=== PATIENT | male | born 1945 | race Caucasian/White ===

== ENCOUNTER 2017-02-09 20:36 | Inpatient (IN) | payer BC, MEDICARE ==
--- NOTE | ~2017-02-09 | CN ---
Consultation Report [facility] [address] [facility] [place]. [address] NAME: MICHAEL ROJAS : 47 STATUS : ADM IN [facility]#: [id number] AGE: 71 ADM/REG DATE : 02/09/17 MR#: [id number] REPORT SERV DATE: 02/11/17 DICTATED BY: RIOS SPRINGER DATE: 02/11/17 REPORT STATUS : Draft TRANSCRIBED BY: MODL DATE: 02/11/17 DATE OF CONSULTATION: HISTORY OF PRESENT ILLNESS: Mr. Michael Rojas is a 71-year-old male, who is referred for hypotension and volume overload. STRAP BUCKLER: Dr. Hobbs from [facility]. HISTORY OF PRESENT ILLNESS: Mr. Rojas has a history of end-stage renal disease, on hemodialysis beginning in 08/2016. He has known coronary artery disease with ischemic cardiomyopathy and permanent atrial fibrillation, on Coumadin. He was admitted on 02/09/2017 with progressive weakness, poor appetite, and difficulty breathing. While in the hospital, he suffered a PEA arrest and was resuscitated. He currently is in intensive care unit and undergoing cardiac support. PAST MEDICAL HISTORY: 1. End-stage renal disease. 2. Ischemic cardiomyopathy with ejection fraction of 35% to 40% in the past. 3. Coronary artery disease with no stents or coronary artery bypass grafting noted. 4. Hypertension, long-standing. 5. Myeloproliferative syndrome. SOCIAL HISTORY: He is . He does continue to smoke daily. He does not drink. FAMILY HISTORY: Negative for early heart disease. PHYSICAL EXAMINATION: GENERAL: He currently is intubated and sedated. VITAL SIGNS: Blood pressure of 80/63. LUNGS: Bilateral breath sounds are heard. HEART: Precordium is quiet with distant heart sounds. Rhythm appears to be regular. ABDOMEN: Soft. EXTREMITIES: There is 1+ lower extremity edema. Pulses are present. LABORATORY EVALUATION: Bilirubin is markedly up. INR was markedly elevated at 7.1, on admission, it is now 3.5 post potassium. BNP was markedly elevated. Troponin was borderline. ASSESSMENT AND PLAN: At this time, we will continue to support as needed. Prognosis is poor. No acute intervention is suggested. No evidence of acute myocardial infarction is noted. GG/MODL Consultation Report [place] [address] [facility] [place]. [address] NAME: MICHAEL ROJAS : 47 STATUS : ADM IN PAT#: [id number] AGE: 71 ADM/REG DATE : 02/09/17 MR#: [id number] REPORT SERV DATE: 02/11/17 DICTATED BY: RIOS SPRINGER DATE: 02/11/17 REPORT STATUS : Draft TRANSCRIBED BY: ANTONIA DATE: 02/11/17 Rios Springer M.D. / [id number] CC: MD Dean Richards M.D.
--- NOTE | ~2017-02-09 | OP ---
Record Of [facility] [address] [place]. [address] NAME: NAVJOT GREENE : 47 STATUS : ADM IN PAT#: [id number] AGE: 71 ADM/REG DATE : 02/09/17 MR#: [id number] REPORT SERV DATE: 02/11/17 DICTATED BY: LACY WILSON DATE: 02/11/17 REPORT STATUS : Draft TRANSCRIBED BY: MODL DATE: 02/11/17 DATE OF PROCEDURE: 02/11/2017 PROCEDURE: Intubation. REASON: Code Blue. Patient unresponsive and not maintaining an airway. The patient did not require any sedation for intubation and a #4 blade was used on the GlideScope. Vocal cords were well visualized and an #8 endotracheal tube was inserted on the first attempt with good color change from blue to yellow. Bilateral breath sounds were heard and chest x-ray confirmed good placement of the endotracheal tube. /LORRAINEL Lacy Wilson M.D. / [id number] CC: MD Dean Richards M.D.
--- NOTE | ~2017-02-09 | DS ---
Discharge Summary [facility] [address] [facility] [place]. [address] NAME: NAVJOT GREENE : 47 STATUS : DIS IN PAT#: [id number] AGE: 71 ADM/REG DATE : 02/09/17 MR#: [id number] REPORT SERV DATE: 02/24/17 DICTATED BY: LACY WILSON DATE: 02/24/17 REPORT STATUS : Draft TRANSCRIBED BY: MODL DATE: 02/24/17 ADMISSION DATE: 02/09/2017 DISCHARGE DATE: 02/24/2017 DATE OF : 02/24/2017 at 0050 hours. The patient has had several interim discharge summaries, the last one being on 02/19/2017. This summary will cover the 02/19/2017 until 02/24/2017. For details, please see previous discharge summary. Briefly, this was a 71-year-old gentleman with chronic kidney disease, initially admitted to the Hospitalist Service, was then transferred to the critical care unit after he developed respiratory failure secondary to volume overload and end-stage kidney disease and not been on dialysis for quite some time. On 02/11/2017, the patient went into a PEA arrest, was coded, intubated, a PICC line and A-line were placed, Vas-Cath was placed. The patient went into cardiogenic shock and had a major decrease in his ejection fraction. He was on multiple pressors including dobutamine, Levophed, epinephrine, and vasopressin. Code status was discussed with the who was agreeable to at least see if the patient was improved to the point where he did not need dialysis since it was his wish not to continue dialysis or have aggressive treatment and tracheostomy was not an option according to the . So, the patient eventually was able to be weaned off the most of the pressors with the exception of Levophed. He was treated for an E. coli Pseudomonas pneumonia. He continued on CRRT and then was transitioned eventually to dialysis. He did not undergo hypothermia protocol because he was not stable enough to do that. However, despite all of that, the patient did improve in his mental status and was responsive. So, he did not suffer any high degree of hypoxic encephalopathy. Further discussion was undertaken with the this week and discussion was had with her on the morning of 02/23/2017 about continuing dialysis, which she chose not to as per her 's wishes. Family was called and when everyone had come by to pay their respects, the patient was liberated from the ventilator and Levophed was discontinued. The patient was made comfort measures. All lab work and dialysis was stopped, and the patient early on the morning of 02/24/2017 at 0050 hours. DICTATED BY: Jena Coates/ANTONIA Lacy Wilson M.D. / [id number] CC: MD Dean Richards M.D.
--- NOTE | ~2017-02-09 | OP ---
Record Of Operation [facility] [address] [place]. [address] NAME: NAVJOT ROJAS : 47 STATUS : ADM IN PAT#: [id number] AGE: 71 ADM/REG DATE : 02/09/17 MR#: [id number] REPORT SERV DATE: 02/11/17 DICTATED BY: MALIA FELICIANO DATE: 02/10/17 REPORT STATUS : Draft TRANSCRIBED BY: MODL DATE: 02/10/17 DATE OF PROCEDURE: 02/10/2017 PREOPERATIVE DIAGNOSIS: Renal failure requiring hemodialysis. POSTOPERATIVE DIAGNOSIS: Renal failure requiring hemodialysis. PROCEDURE PERFORMED: 1. Ultrasound-guided percutaneous access, left internal jugular vein. 2. Placement of left internal jugular vein Vas-Cath with fluoroscopic guidance. SURGEON: Malia Feliciano M.D. ANESTHESIA: Local with MAC. ESTIMATED BLOOD LOSS: 10 mL. COMPLICATIONS: None. INDICATION: Mr. Rojas is a 71-year-old male with end-stage renal disease, on hemodialysis. He apparently has no dialysis access. He needs dialysis somewhat urgently. I am asked to place a Vas-Cath. DETAILS OF PROCEDURE: After informed consent was obtained, the patient was brought to the endovascular suite and placed in supine position. After administration of IV sedation, he was prepped and draped in usual sterile fashion. A time-out was performed. I commenced the procedure with ultrasound examination of the right internal jugular vein. 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 Left internal jugular vein was widely patent and easily compressible. Permanent image of the vein documenting patency was saved and stored in the patient's chart. I anesthetized the skin at the left side of the neck. I accessed the internal jugular vein with 18-gauge entry needle, passed the J-tip guidewire into the right atrium confirmed under fluoroscopy. I then made a stab incision overlying the access site. I sequentially dilated the subcutaneous tract. I then placed a Mahurkar Vas-Cath with tip in the right atrium. Both ports aspirated dark venous blood and flushed easily with heparinized saline. Satisfactory placement was confirmed under fluoroscopy. Catheter was secured to the skin with 2-0 nylon. Sterile dressings were applied. The patient has a MediPort in place in what looks to be the right subclavian vein. To ensure that it was usable, I accessed it with a De Jesus needle. It aspirated dark venous blood and flushes easily with heparinized saline. I then left the port accessed and a sterile dressing was applied. The patient tolerated the procedure well with no complications. RYAN/ANTONIA Malia Donovan Record Of [address] [address] NAME: NAVJOT ROJAS : 47 STATUS : ADM IN [facility]#: [id number] AGE: 71 ADM/REG DATE : 02/09/17 MR#: [id number] REPORT SERV DATE: 02/11/17 DICTATED BY: MALIA FELICIANO DATE: 02/10/17 REPORT STATUS : Draft TRANSCRIBED BY: ANTONIA DATE: 02/10/17 Jena Feliciano / [id number] CC: MD Dean Richards M.D.
--- NOTE | ~2017-02-09 | CN ---
Consultation Report [facility] [address] [place]. [address] NAME: NAVJOT GREENE : 47 STATUS : ADM IN PAT#: [id number] AGE: 71 ADM/REG DATE : 02/09/17 MR#: [id number] REPORT SERV DATE: 02/12/17 DICTATED BY: DATE: REPORT STATUS : Draft TRANSCRIBED BY: MODL DATE: 02/12/17 NEUROLOGY CONSULTATION DATE OF CONSULTATION: 02/12/2017 REASON FOR CONSULT: Prognostication after cardiac arrest. HISTORY OF PRESENT ILLNESS: This is a 71-year-old male who presented to [facility] on 02/09/2017 secondary to multiple complaints, mostly was noted to have volume overloading as well as progressive weakness and decreased respiratory status. The patient was placed on BiPAP as well as CRRT, was noted to have increasing hypoxia, subsequently was transferred to the MICU for stabilization. The patient was noted to have a PEA cardiac arrest. On 02/11/2017, the patient was resuscitated with multiple rounds of epinephrine as well as atropine with the patient subsequently placed on epinephrine drip. The patient resumed cardiac rhythm, but was noted to have obtainable blood pressure, subsequently required three pressors for maintaining blood pressures. The patient was off CRRT secondary to patient's unstable vital status. The patient in addition was not offered hypothermia secondary to unstable clinical presentation. Since the cardiac arrest, the patient was noted to have myoclonus-type activities with the patient subsequently placed on Precedex as well as provided with a one-time dose of Keppra 1000 mg. No significant improvement of myoclonus was noted. The patient was still noted to have jerking type of activity with stimulation. The patient at baseline was noted to have a poor functional status with the patient noted to have decreased heart contractility with the patient's EF 25% to 30% during current hospital admission. In addition, the patient was noted to have volume overloading as well as chronic kidney disease. The patient, however, was noted to be not on dialysis prior to hospital presentation for unknown reason. The patient in addition was also noted to have a history of myelodysplastic syndrome. The patient is currently on Precedex prior to the hospitalization. No report of recent illness, fever, chill, nausea, vomiting was reported. PAST MEDICAL HISTORY: Significant for chronic kidney disease, stage 4 to 5, with the patient previously on hemodialysis, but apparently has been off one year for unknown reason. The patient was also noted to have a history of hypertension; adrenal insufficiency; hypothyroidism; gastroesophageal reflux disease; COPD; atrial fibrillation, previously on Coumadin; pulmonary hypertension; as well as congestive heart failure, current LVEF of 25- 30% by inpatient echocardiogram during current hospital admission. ALLERGIES: THE PATIENT WAS NOTED TO HAVE NO KNOWN DRUG ALLERGIES. FAMILY HISTORY: Significant for dementia as well as Desi Gehrig disease, and cancer. SOCIAL HISTORY: The patient still smokes tobacco, but denies alcohol and illicit drug usage per medical record. CURRENT HOSPITAL MEDICATIONS: Consist of Precedex as well as Levophed and Vasotec. The Consultation Report [place] [address] [place]. [address] NAME: NAVJOT GREENE : 47 STATUS : ADM IN [facility]#: [id number] AGE: 71 ADM/REG DATE : 02/09/17 MR#: [id number] REPORT SERV DATE: 02/12/17 DICTATED BY: DATE: REPORT STATUS : Draft TRANSCRIBED BY: MODL DATE: 02/12/17 patient in addition was provided with a one-time dose of Keppra 1000 mg IV. The patient is also on Bactroban, Dulera, Habitrol, aspirin, Lipitor, Lofibra, Paxil, Ranexa, Solu-Cortef, Spiriva, Synthroid, vitamin D, vitamin K, and Zosyn. REVIEW OF SYSTEMS: Unable to be obtained secondary to the patient's current mental status. PHYSICAL EXAMINATION: VITAL SIGNS: At the time of evaluation, the patient was noted to have overnight T-max of 103.1, heart rates of 64 to 77, respirations of 12 to 16, blood pressure of 116 to 150/52 to 68. GENERAL: The patient is well developed, well nourished, in no acute distress. CARDIOVASCULAR: Regular rate and rhythm. No carotid bruits were otherwise auscultated. PULMONARY: Clear to auscultation bilaterally. NEUROLOGICAL EXAMINATION: The patient was noted to be intubated. No spontaneous activity was noted. The patient was noted to follow sporadic and simple commands at the time of evaluation. The patient's pupil was not reactive at the time of evaluation, roughly 4 mm in diameter, however, does have [id number] response, was noted to have some spontaneous horizontal eye movement at the time of evaluation. The patient was noted to have a gag reflex at the time of evaluation with roughly symmetrical facial expression. The patient was noted to have stimulus-induced myoclonus with noxious stimulation, but also some spontaneous activities of the bilateral upper extremities. The patient does demonstrate grimace as well as some trace withdrawal to noxious stimulation in bilateral upper extremities and lower extremities with the patient noted to have 2+ reflexes in bilateral upper and lower extremities with downgoing toe and bilateral plantar reflexes. CEREBELLAR EXAMINATION: Gait was unable to be performed secondary to patient's mental status as well as intubation status. LABORATORY STUDIES: Demonstrated white blood cell count of 9.9, hemoglobin was 10.8, hematocrit 33.0, and platelet count of 119. Chemistry panel: Sodium of 141, potassium of 5.0, chloride 104, bicarb of 26, BUN of 17, creatinine of 4.05, glucose 167, calcium of 8.9, magnesium 2.2. The patient does have a CT scan around hospital admission with generalized atrophy, concern for possible right frontal area age-indeterminate infarct. No neuro imaging was obtained after cardiac arrest. IMPRESSION: 1. Encephalopathy. 2. Myoclonus. The patient was noted to have multiple medical issues. Prognosis is guarded to poor secondary to the patient's ongoing medical issues as the patient is currently on 3 pressors to maintain blood pressure, was noted to have decreased left ventricular ejection fraction as well as chronic kidney disease, and currently unable to provide continuous renal replacement therapy or hemodialysis secondary to hemodynamic instability. The patient was noted to have myoclonus on examination as Consultation Report [address] [place]. [address] NAME: NAVJOT GREENE : 47 STATUS : ADM IN PAT#: [id number] AGE: 71 ADM/REG DATE : 02/09/17 MR#: [id number] REPORT SERV DATE: 02/12/17 DICTATED BY: DATE: REPORT STATUS : Draft TRANSCRIBED BY: MODL DATE: 02/12/17 well as overnight. We will recommend the patient to be on scheduled Keppra as well as Depakote for control of myoclonus. We are recommending weaning off Precedex as tolerated. We will obtain EEG. We will discontinue MRI of the brain that was ordered by hospitalist as patient is currently hemodynamically unstable. For MRI scan, we will discuss with regarding patient's overall medical status as well as likely poor prognosis. The patient is currently a [id number]. RECOMMENDATIONS: 1. DNR. We will continue ventilator support. 2. Keppra 1000 mg IV b.i.d. 3. Depakote 1000 mg IV b.i.d. 4. EEG. 5. Discontinue MRI of the brain. 6. We are recommending weaning off sedation as tolerated. CCH/MODL Solomon Che MD / [id number] CC: MD Dean Richards M.D.
--- NOTE | ~2017-02-09 | HP ---
History And Physical [id number] [place]. [address] NAME: NAVJOT ROJAS : 47 STATUS : ADM IN [facility]#: [id number] AGE: 71 ADM/REG DATE : 02/09/17 MR#: [id number] REPORT SERV DATE: 02/10/17 DICTATED BY: DUNG QUINN DATE: 02/09/17 REPORT STATUS : Draft TRANSCRIBED BY: MODL DATE: 02/09/17 DATE OF ADMISSION: 02/09/2017 POINT OF ENTRY: [facility] Emergency Department. PRIMARY ETHANOL OPERATOR: Dr. Hobbs of [place], [place]. PRIMARY BRIM BUSTER: Dr. Maciel of [place], [place]. CHIEF COMPLAINT: Weakness and recent fall. HISTORY OF PRESENT ILLNESS: Mr. Rojas is a 71-year-old gentleman with a history of chronic kidney disease, stage 4 to stage 5, no longer on hemodialysis; hypothyroidism; chronic adrenal insufficiency; coronary artery disease as well as atrial fibrillation, on anticoagulation, who presents to the emergency department today with multiple complaints including recent mechanical fall with resulting left-sided pain as well as progressive worsening weakness, fatigue, shortness of breath, and lower extremity edema. The patient was recently discontinued off his hemodialysis in 08/2016. Family states that since discharge, he has not had any problems with recurrent volume overload. The patient suffered a recent mechanical fall on , falling forward and striking his face as well as his abdominal area and left side of his body. He denies any loss of consciousness. Daughter also states just progressive worsening weakness, fatigue, anorexia, and poor appetite. The patient also does endorse a sensation of progressive worsening volume overload with some lower extremity edema, abdominal distention and bloating as well as worsening of his baseline shortness of breath. Initial evaluation in the emergency department for a CT scan of the brain that showed no acute hemorrhage, but was concerning for a possible 8 mm right posterior frontal lobe cerebrovascular accident, age indeterminate. CT scan of the abdomen and pelvis showed trace bilateral pleural effusions as well as a right posterior eighth rib fracture and mild ascites. Chest x-ray concerned for volume overload. INR was noted to be 6.6, and BNP elevated at 1900. The patient was subsequently admitted to the Hospitalist Service for further evaluation and management. The patient denies any recent fevers, night sweats, chills, chest pain, palpitations, abdominal pain, nausea, vomiting, diarrhea, dysuria, melena, hematochezia, hemoptysis, or hematemesis. Comprehensive review of systems otherwise negative unless listed in history present illness. PREVIOUS MEDICAL HISTORY: 1. Chronic kidney disease, stage 4 to stage 5. 2. Myelodysplastic syndrome. History And Physical [address] [address] NAME: NAVJOT ROJAS : 47 STATUS : ADM IN PAT#: [id number] AGE: 71 ADM/REG DATE : 02/09/17 MR#: [id number] REPORT SERV DATE: 02/10/17 DICTATED BY: DUNG QUINN DATE: 02/09/17 REPORT STATUS : Draft TRANSCRIBED BY: ANTONIA DATE: 02/09/17 3. Coronary artery disease with prior myocardial infarctions. 4. Hypothyroidism. 5. Adrenal insufficiency. 6. Hypertension. 7. Gastroesophageal reflux disease. 8. COPD. 9. Atrial fibrillation, on Coumadin. 10.Chronic systolic congestive heart failure, ejection fraction of 35% to 40%. 11.Pulmonary hypertension. SURGICAL HISTORY: 1. Cholecystectomy. 2. Abdominal aortic aneurysm repair. ALLERGIES: NO KNOWN DRUG ALLERGIES. HOME MEDICATIONS: 1. Albuterol 2 puffs inhalation p.r.n. 2. Aspirin 81 mg daily. 3. Atorvastatin 10 mg at bedtime. 4. Vitamin D 50,000 units weekly. 5. Hydrocortisone 20 mg b.i.d. 6. Levothyroxine 112 mcg daily. 7. Dulera 1 puff inhalation b.i.d. 8. Omeprazole 20 mg daily p.r.n. 9. Paxil 30 mg daily. 10.Ranolazine 1000 mg b.i.d. 11.Spiriva one cap inhalation daily. 12.Demadex 50 to 100 mg daily. 13.Fenofibrate 54 mg daily. 14.Coumadin 2.5 mg on Wednesday, , Wednesday, Wednesday. 15.Coumadin 5 mg on Wednesday, Wednesday, Wednesday. SOCIAL HISTORY: Still smokes 1 to 2 cigarettes daily. Denies any alcohol or illicits. FAMILY MEDICAL HISTORY: Mother with Alzheimer's dementia. Father with Desi Gehrig's disease. Siblings with cancer, type unknown. LABS AND IMAGIN. White count is 8.5, hemoglobin is 13.6, hematocrit is 42.5, platelet count is 168. INR 6.6. 2. Sodium is 138, potassium 4.9, chloride 98, carbon dioxide 31, BUN 77, creatinine 4.16, glucose is 137, calcium is 9.4, protein 6.8, albumin 3.7, bilirubin is 3.8, ALT is 50, AST 47, alkaline phosphatase is 80. 3. BNP is . 4. Urinalysis: Specific gravity was 1.013. No evidence of any infections. EKG per my review shows normal sinus rhythm with a widened QRS as well as inferolateral T-wave History And Physical [address] [address] NAME: NAVJOT ROJAS : 47 STATUS : ADM IN [facility]#: [id number] AGE: 71 ADM/REG DATE : 02/09/17 MR#: [id number] REPORT SERV DATE: 02/10/17 DICTATED BY: DUNG QUINN DATE: 02/09/17 REPORT STATUS : Draft TRANSCRIBED BY: ANTONIA DATE: 02/09/17 inversions. 5. Chest x-ray per my review shows mild to moderate intravascular volume overload as well as cardiomegaly. 6. CT scan of the abdomen and pelvis shows cardiomegaly with trace bilateral pleural effusions as well as a right posterior eighth rib fracture and some mild ascites. 7. CT scan of the brain shows advanced diffuse involutional changes as well as asymmetric focal deep white matter ischemic changes versus an 8 mm right posterior frontal lobe cerebrovascular accident. PHYSICAL EXAMINATION: VITAL SIGNS: Temperature is 97.1 degrees Fahrenheit; pulse is 105; respirations 24; saturating 92% on room air; blood pressure 96/61; on recheck, blood pressure now 106/63; pulse of 108. GENERAL: The patient is awake, alert, in no acute distress. He is a chronically ill- appearing, elderly male. Daughter is at bedside. HEENT: The patient has some bruising to his mid forehead region. Normocephalic. Moist mucous membranes. Pupils are equal, round, reactive to light and accommodation. Extraocular movements intact. No scleral icterus. NECK: No jugular venous distention or carotid bruits. CARDIAC: Regular rate and rhythm. A 2/6 systolic murmur heard best at the left lower sternal border. LUNGS: Not on oxygen, but he is somewhat visibly short of breath and tachypneic. Decreased breath sounds at bases as well as inspiratory rales in the bilateral bases. ABDOMEN: Obese, soft, somewhat tender to palpation in the bilateral lower quadrants. No rebound, guarding, or rigidity. EXTREMITIES: Warm and perfused with no cyanosis or clubbing. Does have 1+ lower extremity edema. SKIN: Warm and dry except for noted above. PSYCH: Affect appropriate. NEUROLOGIC: Alert and oriented x3. Cranial nerves 2 through 12 grossly intact. Speech is normal. Gait not assessed. ASSESSMENT AND PLAN: Mr. Rojas is a 71-year-old gentleman who presents with multiple complaints including recent mechanical fall at home, progressive worsening weakness and fatigue as well as shortness of breath and lower extremity edema. PROBLEM LIST: 1. Acute on chronic systolic congestive heart failure. 2. Chronic kidney disease, stage 4 to stage 5. 3. Recent mechanical fall. 4. Supratherapeutic INR. 5. Elevated bilirubin level. 6. Abnormal CT scan of the brain. 7. Weakness and fatigue. 8. Hypothyroidism. PLAN: History And Physical [address] [address] NAME: NAVJOT ROJAS : 47 STATUS : ADM IN [facility]#: [id number] AGE: 71 ADM/REG DATE : 02/09/17 MR#: [id number] REPORT SERV DATE: 02/10/17 DICTATED BY: DUNG QUINN DATE: 02/09/17 REPORT STATUS : Draft TRANSCRIBED BY: MODKieran DATE: 02/09/17 1. Acute on chronic systolic congestive heart failure based on BNP. Chest x-ray is he is developing some worsening fluid overload. We will hold the patient's oral Demadex, place him on IV Bumex q.8 hours as well as recheck an echocardiogram in the morning. 2. Chronic kidney disease, stage 4 to stage 5. We will consult Nephrology for assistance especially in light of volume overload and assistance with diuretics. 3. Supratherapeutic INR. Holding the patient's Coumadin. The patient denies any recent troubles with bleeding; therefore, we will not reverse him at this time. 4. Elevated bilirubin level, unclear etiology at this time. We will check a right upper quadrant ultrasound. CT scan of the abdomen and pelvis was unremarkable. 5. Abnormal CT scan of the brain. We will order an MRI as recommended by Radiology. 6. Weakness and fatigue. Physical Therapy consultation. Checking thyroid function studies as well as IV diuretics. 7. Recent mechanical fall. Follow up PT evaluation. 8. Hypothyroidism. Checking thyroid function studies. 9. Deep vein thrombosis prophylaxis. The patient is therapeutically anticoagulated. 10.Code status. The patient wished to be a full code. JCB/MODL Dung Quinn MD / [id number] CC: Jena Cesar M.D. Ezad Ahmad, M.D. Dr. Newby
--- NOTE | ~2017-02-09 | EEG ---
Electroencephalogram [address] [place]. [address] NAME: NAVJOT GREENE : 47 STATUS : ADM IN PAT#: [id number] AGE: 71 ADM/REG DATE : 02/09/17 MR#: [id number] REPORT SERV DATE: 02/18/17 DICTATED BY: SHARI GONSALEZ DATE: 02/18/17 REPORT STATUS : Draft TRANSCRIBED BY: MODL DATE: 02/18/17 ELECTROENCEPHALOGRAPHY REPORT REQUESTING PHYSICIAN: Dr. Mikki Pickard. INTERPRETING PHYSICIAN: Shari Gonsalez MD-Neurology. AGE: 71. REASON FOR EEG: Persistent unresponsive state. End-stage renal disease on hemodialysis. Status post cardiopulmonary arrest. This was a prolonged EEG recording with the administration of rocuronium. Photic stimulation was performed. Video monitoring was utilized. Total recording time 1 hour and 4 minutes. The background activity consisted of extremely low voltage beta range activity. Large amount of muscle artifact was seen obscuring the cerebral activity. Despite sedation, the muscle activity persisted. No abnormal tonic-clonic activity was observed during that time after the administration of rocuronium up to 15 mg. The muscle activity was terminated and the background activity could not be assessed. Low-voltage 7 to 8 cycles was noted to be located in the posterior head regions. Similar activity was observed during photic stimulation. No paroxysmal or epileptiform activity was seen during this study. The patient's monitor car operator showed the most part regular sinus rhythm of heart rate ranging between 78 to 80 beats per minute. No paroxysmal or epileptiform activity was seen during the study. IMPRESSION: SEVERE ATTENUATION OF AMPLITUDE AND ACTIVITY WAS SEEN DURING THIS STUDY. NO PAROXYSMAL OR EPILEPTIFORM FEATURES WERE PRESENT. NO SIGNIFICANT ASYMMETRY OF CEREBRAL ACTIVITY WAS SEEN. SIMILAR ACTIVITY WAS SEEN DURING PHOTIC STIMULATION. CLINICAL CORRELATION IS RECOMMENDED. SANTIAGO/ANTONIA Shari Gonsalez MD / [id number] CC: MD Dean Richards M.D.
--- NOTE | ~2017-02-09 | OP ---
Record Of Operation [facility] [address] [place]. [address] NAME: NAVJOT GREENE : 47 STATUS : ADM IN PAT#: [id number] AGE: 71 ADM/REG DATE : 02/09/17 MR#: [id number] REPORT SERV DATE: 02/11/17 DICTATED BY: LACY WILSON DATE: 02/11/17 REPORT STATUS : Draft TRANSCRIBED BY: MODL DATE: 02/11/17 DATE OF PROCEDURE: 02/11/2017 PROCEDURE CODE BLUE This is a 71-year-old patient with multiple medical problems, including end-stage kidney disease, coronary artery disease, COPD, volume overload, and Coumadin toxicity, who was admitted to the Hospitalist Service and eventually transferred to the unit yesterday after he became hypoxic in dialysis, required BiPAP and was not able to be dialyzed because of difficulties with his AV fistula. The patient then was kept in the unit overnight and was started on CRRT. Approximately 1125 hours, the patient was noted to become bradycardic, went pulseless code was called. CPR was started. Epinephrine was given as per protocol. The rhythm was then PEA throughout most of the code up until around 1130. Then, the patient was in sinus bradycardia but had a palpable pulse, but blood pressure could not be obtained. The heart rate was anywhere from 49 to 80 beats per minute. A total of 4 amps of epinephrine were given. Two amps of atropine were given. Epinephrine and Levophed drip were started during the code, and the patient was intubated without having to stop CPR. The patient then received 2 amps of bicarb, lactated Ringer bolus, and finally, a right femoral arterial A-line was placed with ultrasound guidance with good waveform. The patient was able to open his eyes and move his extremities but was somewhat somnolent. Total time of the code was from 1125 hours to 1205 hours for a total of 30 minutes. The patient is in extremely critical condition and is suspected to have suffered an NH. The plan will be to obtain further cardiac enzymes and obtain a cardiac opinion. The patient did have an echocardiogram before the code and was read, and he was found to have an ejection fraction of 25% to 30%. Pulmonary hypertension, no significant pericardial effusion. In comparison to the ejection fraction that was reported by his channel marketing manager in 03/2016, there has been a dramatic decrease in his ejection fraction from 60% to the present low 25% to 30%. /MODL Lacy Wilson M.D. / [id number] CC: Jena Elder M.D.
--- NOTE | ~2017-02-09 | CN ---
Consultation Report [facility] [address] [place]. [address] NAME: NAVJOT ROJAS : 47 STATUS : ADM IN [facility]#: [id number] AGE: 71 ADM/REG DATE : 02/09/17 MR#: [id number] REPORT SERV DATE: 02/10/17 DICTATED BY: DATE: REPORT STATUS : Draft TRANSCRIBED BY: MODL DATE: 02/10/17 CONSULTATION DATE OF CONSULTATION: REASON FOR CONSULTATION: Acute kidney injury versus CKD versus end-stage renal disease. HISTORY OF PRESENT ILLNESS: Mr. Rojas is a 71-year-old white male, followed in our practice for his CKD that is quite advanced by Dr. Soares. In the past, he has been on dialysis because of volume issues and it was discontinued in 08/2016. He has done relatively well up until recently. He started having decreased p.o. intake. States, he consistently is nauseated with vomiting on a daily basis. He had increasing edema, increasing shortness of breath, and fell, and therefore was brought to the emergency room. In the emergency room, he has significant pulmonary edema. There is an old infarct on his CT of the head and very weak, found to have a rib fracture, elevated INR, low blood pressure. Given all these things, he was admitted, and we have been asked to see him. His creatinine is up to 4.2, with BUN of 80. He has had minimal urine output since being here despite Bumex. He does have an AV fistula in place. PAST MEDICAL HISTORY: CKD stage 4 to 5, atrial fibrillation, coronary artery disease, myelodysplastic syndrome, COPD, reflux, chronic adrenal insufficiency, DVT, pulmonary hypertension, CHF with EF of 35% to 40%, abdominal aortic aneurysm, and cholecystectomy. ALLERGIES: NONE. SOCIAL HISTORY: He is , lives with . No tobacco, alcohol, or illicit drug use. FAMILY MEDICAL HISTORY: No end-stage renal disease. PHYSICAL EXAMINATION: VITAL SIGNS: Temp 98, blood pressure 132/59, pulse 112, respiratory rate is in the 30s, O2 sat 98%. GENERAL: This is an ill-appearing white male. He is awake, alert, oriented, and answers questions appropriately. HEENT: Normocephalic, atraumatic. Conjunctivae clear. Sclerae anicteric. Pupils are equal and round. Oral mucosa is very dry. NECK: Supple. Carotids are brisk. Neck veins flat. No lymphadenopathy. LUNGS: Respirations are labored and increased and breath sounds are globally decreased. HEART: Rate is regular, but increased. ABDOMEN: Soft, nontender. Bowel sounds active. No masses or hepatosplenomegaly. No CVA tenderness. BACK: Within normal limits. EXTREMITIES: With non pitting edema. SKIN: Dry and scaly. I did not see any unusual rashes. Consultation Report [address] [place]. [address] NAME: NAVJOT ROJAS : 47 STATUS : ADM IN PAT#: [id number] AGE: 71 ADM/REG DATE : 02/09/17 MR#: [id number] REPORT SERV DATE: 02/10/17 DICTATED BY: DATE: REPORT STATUS : Draft TRANSCRIBED BY: MODL DATE: 02/10/17 NEURO: Generalized weakness. Mood and affect, pleasant appropriate. PERTINENT LABS AND X-RAYS: Chest x-ray with edema. WBCs 9.9, H and H 13 and 40, platelets 176,000. Sodium 139, potassium 4.9, chloride 99, CO2 of 29, BUN of 80, creatinine of 4.2, calcium 9.5, CPK of 163, troponin of 0.13. TSH of 10. CT abdomen with cardiomegaly, trace bilateral pleural effusions, ascites. UA without any red blood cells, bacteria, no protein. IMPRESSION: 1. Chronic kidney disease stage 5, probably end-stage renal disease versus acute kidney injury. 2. Uremia. 3. Pulmonary edema. 4. Fall. 5. Weakness. 6. History of congestive heart failure with EF of 35% to 40%. 7. Chronic obstructive pulmonary disease. PLAN: Given his uremic symptoms and volume overload with his pulmonary edema, he is agreeable to dialysis here. He is adamant that he never wants to go to chronic dialysis in [place] again. We will discuss that in later date. We will go ahead and plan dialysis today through his AV fistula. I have called and expressed his concerns regarding his fistula to the dialysis nurse to use smaller needles and will dialyze for 2 hours today and 3 hours tomorrow and remove as much volume as were able as he tolerates, his blood pressure will tolerate. Further orders and recommendations pending clinical course. TA/MODL MADDIE Lane / [id number] CC: Jena Yi M.D.
--- NOTE | ~2017-02-09 | OP ---
Record Of Operation [facility] [address] [place]. [address] NAME: NAVJOT GREENE : 47 STATUS : ADM IN PAT#: [id number] AGE: 71 ADM/REG DATE : 02/09/17 MR#: [id number] REPORT SERV DATE: 02/11/17 DICTATED BY: LACY WILSON DATE: 02/11/17 REPORT STATUS : Draft TRANSCRIBED BY: MODL DATE: 02/11/17 DATE OF PROCEDURE: 02/11/2017 PROCEDURE: Placement of right femoral arterial line. This is an emergent situation. No consent was obtained for the procedure. The patient is status post Code Blue and blood pressure is unobtainable. DESCRIPTION OF PROCEDURE: The right groin was prepped and draped in sterile fashion. Lidocaine 1% was used as local anesthetic. The right femoral artery was visualized using ultrasound guidance. Large bore needle was inserted into the right femoral artery on the first attempt with good blood return. Guidewire was threaded through the needle which was then removed. A 12 cm catheter was threaded over the guidewire with the guidewire being removed in the line sewn in place with 2-0 silk. Good waveform was obtained and a sterile Biopatch and dressing were applied. /ANTONIA Lacy Wilson M.D. / [id number] CC: MD Dean Richards M.D.
--- NOTE | ~2017-02-09 | EEG ---
Electroencephalogram [facility] [address] [place]. [address] NAME: NAVJOT GREENE : 47 STATUS : ADM IN PAT#: [id number] AGE: 71 ADM/REG DATE : 02/09/17 MR#: [id number] REPORT SERV DATE: 02/12/17 DICTATED BY: DATE: REPORT STATUS : Draft TRANSCRIBED BY: MODL DATE: 02/12/17 NEUROLOGY EEG REPORT CLINICAL INDICATIONS: Postanoxic encephalopathy, myoclonus jerk. DESCRIPTION: This EEG was performed using 10/20 electrode placement system. During the EEG study, symmetric background activity with generalized slowing was seen, predominant occipital rhythm of roughly 3-4 hertz. Photic stimulation was performed. The patient was noted to have driving response mostly originating in the left hemisphere. The patient during the EEG study initially was noted to have symmetric background activity, subsequently was noted to have decreasing amplitudes in the right hemispheres that appeared to be somewhat episodic suggesting possible insult to the right hemisphere area. Hyperventilation was not performed secondary to the patient's intubation status. The patient was noted to have jerking episodes captured during the EEG study, sometimes associated with stimulation, no corresponding background electrographic seizure was otherwise noted. The patient does have reactive brain activities, background activities to environmental stimulation including talking, pinching, as well as obtaining vital signs and photic stimulation. The patient remains in comatose state during the entire EEG study. INTERPRETATION: This EEG study obtained entirely during comatose state may be considered abnormal secondary to. 1. Generalized slowing. 2. Decrease background activity in the right hemisphere that appeared to be frequent, but more episodic, concerning for possible damage with structure abnormality in the right hemisphere area. 3. However, the patient during today's EEG retained reactive background despite generalized slowing, and the patient's postanoxic injury reactive background may pertain to better prognosis. Clinical correlation is otherwise recommended. [facility]/MODL Solomon Che MD / [id number] CC: MD Dean Richards M.D.
--- NOTE | ~2017-02-09 | IDS ---
Interim Discharge Summary [facility] [address] [place]. [address] NAME: NAVJOT GREENE : 47 STATUS : ADM IN [facility]#: [id number] AGE: 71 ADM/REG DATE : 02/09/17 MR#: [id number] REPORT SERV DATE: 02/19/17 DICTATED BY: DUNIA SPRINGER DATE: 02/19/17 REPORT STATUS : Draft TRANSCRIBED BY: MODL DATE: 02/19/17 ADMISSION DATE: 02/09/2017 DISCHARGE DATE: DATE OF TRANSFER TO THE ICU: 02/11/2017. INTERIM DIAGNOSES: 1. End-stage renal disease. 2. Status post pulseless electrical activity arrest. 3. Acute respiratory failure. 4. Escherichia coli and Pseudomonas pneumonia. 5. Acute encephalopathy. 6. Thrombocytopenia. 7. Cardiogenic shock. 8. Congestive heart failure with ejection fraction 20% to 25%. ICU COURSE: Please see dictated H and P as well as multiple consult notes for full patient presentation and history. BRIEF SUMMARY: The patient is a 71-year-old gentleman with a past medical history of chronic kidney disease, who initially was admitted to the Hospitalist Service back on 02/10/2017 for worsening acute on chronic renal failure, now likely end-stage renal disease with weakness and volume overload. The patient suffered a PEA arrest on 02/11/2017 while he was undergoing hemodialysis and was intubated, moved to the ICU, and subsequently developed severe cardiogenic shock, initially requiring three vasopressors as well as likely anoxic injury where he was initially having myoclonic jerks following his PEA arrest. The patient did not undergo hypothermia protocol given how unstable he was and the fact that he was on three vasopressors. Since that time, the patient has been supported with supportive care in the ICU. 1. Status post PEA arrest. The patient remains on supportive care in the ICU including CRRT, vasopressors, and ventilatory support. 2. Acute respiratory failure. The patient has been maintained on the ventilator this week. He has been on minimal ventilator settings and has tolerated some CPAP trials. However, we have not been able to liberate him from the ventilator given his poor mental status. We will continue to do daily awakening trials and daily CPAP trials as he tolerates. 3. E coli and Pseudomonas pneumonia. The patient did grow out both E coli and Pseudomonas from his sputum this week. He initially was on Zosyn for some time, but I have since changed him to Levaquin as both organisms are susceptible to that. Currently, he is on day 9, #14 of antibiotics. I plan on treating him for two weeks given his Pseudomonas pneumonia. 4. End-stage renal disease. The patient remains on CRRT at this time. Renal has had talks with the , and the plan is once his filter clots, we will discontinue CRRT and then potentially see how he tolerates hemodialysis. 5. Thrombocytopenia. The patient have been thrombocytopenic all week secondary to his critical illness. HIT panel was sent and was negative. He has not required any Interim Discharge Summary [address] [place]. [address] NAME: NAVJOT GREENE : 47 STATUS : ADM IN [facility]#: [id number] AGE: 71 ADM/REG DATE : 02/09/17 MR#: [id number] REPORT SERV DATE: 02/19/17 DICTATED BY: DUNIA SPRINGER DATE: 02/19/17 REPORT STATUS : Draft TRANSCRIBED BY: ANTONIA DATE: 02/19/17 transfusions of platelets. We have been monitoring them, they have been stable, and he has had no signs of active bleeding. 6. Shock, likely cardiogenic given his poor ejection fraction and recent cardiac arrest. The patient is on Levophed as well as hydrocortisone. We will continue these for a MAP greater than 65. 7. Acute encephalopathy. Currently, this is the patient's biggest issue. He apparently following his arrest would have some myoclonus, but then began to wake up and follow commands. However, for the last five days or so, the patient has really not had much of a neurologic function. Neuro continues to follow along and is assisting with that. He does remain on Keppra. Overnight, the patient actually did start to wake up, but is not doing anything purposeful or following commands, though this is a slight improvement in his neurologic function that I have seen over the last few days. He still remains a poor prognosis from a neurologic standpoint. 8. Goals of care. Discussions have been held with the . He is a limited do not resuscitate at this time. She has expressed not wanting long-term supportive care if it appears to be a poor prognosis. She has expressed not wanting a tracheostomy for him in the past. He has had some slight improvement in his neurologic status over the last 24 hours, so she does not wish to transition to comfort care quite yet at this time. She is also having discussions with Nephrology about stopping CRRT once his filter clots and then seeing how he tolerates hemodialysis. She is indicating that if he does not tolerate hemodialysis, then she would likely want to also stop supportive care at that time. Ongoing talks will continue with the regarding prognosis and goals of care, but at this time, he still does remain a limited do not resuscitate. The oncoming production engine repairer will take over care for the patient tomorrow. Please call if you have any questions. JOSE/MODL Dunia Springer MD / [id number] CC: MD Dean Richards M.D.
[2017-02-09 20:24] LABS: BASOPHILS 0 %; EOSINOPHILS 0.5 %; EOSINOPHILS ABSOLUTE 0.04 10/3/uL (0.0-0.53); IMMATURE GRANULOCYTES 0.2 %; IMMATURE GRANULOCYTES ABSOLUTE 0.02 10/3/uL (0.0-0.11); LYMPHOCYTES 4.5 %; LYMPHOCYTES ABSOLUTE 0.38 10/3/uL (0.67-4.30); MEAN CORPUSCULAR HEMOGLOB 35.4 pg (26.0-34.0); MEAN PLATELET VOLUME 10.2 fL (9.2-13.0); MONOCYTES 5.6 %; MONOCYTES ABSOLUTE 0.48 10/3/uL (0.21-1.20); NEUTROPHILS 89.2 %; NEUTROPHILS ABSOLUTE 7.61 10/3/uL (2.02-8.40); NUCLEATED RED BLOOD CELLS 0.4 /100WBC (0-0); PLATELET COUNT 168 10/3/uL (150-400); RBC DISTRIBUTION WIDTH 20.5 % (12.0-16.0); RED CELL COUNT 3.84 10/6/uL (4.7-6.1)
[2017-02-09 20:25] LABS: ER CBC TAT 0 Hrs 10 Mins; HEMATOCRIT 42.5 % (40.0-51.0); HEMOGLOBIN 13.6 g/dL (13.6-17.8); MANUAL DIFF NO %; MEAN CORPUSCULAR VOLUME 110.7 fL (80-100); WHITE BLOOD CELLS 8.5 10/3/uL (4.5-10.5)
[2017-02-09 20:27] LABS: PARTIAL THROMBO TIME 37.7 SEC (22.5-37.2)
[2017-02-09 20:28] LABS: INTERNATIONAL NORMAL RATI 6.6 UNITS (-); PROTIME (NOT ORD) 57.4 SEC (12.0-14.5)
[2017-02-09 20:36] LABS: ANISOCYTOSIS 1+ (5-10/OIF) (0-5/OIF); BUN (BLOOD UREA NITROGEN) 77 MG/DL (6-23); CALCIUM, SERUM 9.4 MG/DL (8.5-10.4); CHLORIDE, SERUM 98 MMOL/L (96-112); CO2 (CARBON DIOXIDE) 31 MMOL/L (24-34); CREATININE 4.16 MG/DL (0.70-1.30); DIRECT BILIRUBIN 2.8 MG/DL (0.0-0.4); GFR AFRICAN AMERICAN 16 ML/MIN (>=60); GFR NON AFRICAN AMERICAN 14 ML/MIN (>=60); SGOT(AST) 47 U/L (5-40); SGPT(ALT) 50 U/L (5-65); SODIUM, SERUM 138 MMOL/L (135-148); TOTAL PROTEIN 6.8 G/DL (6.0-8.5)
[~2017-02-09 20:36] MED LIST: *UNABLE3; ACET500CAP PO; ADVAIR250 IH; ADVAIR250 INH; ASAB PO; BIST PO; BLOOD PRESSURE TAB PO; C5 PO; CHEMO TREATMENT; COMP10B PO; COREG12 PO; COREG3 PO; CORTEF20 MG PO; CORTEF5 PO; COZ50 PO; CRESTOR5 MG PO; DEMA100 PO; DULERA 200 MCG/13 GM INH; FLUCON1 PO; INHALER INH; ISORDIL10 PO; ISORDIL20 PO; KLOR-CON 1010 MEQ PO; L40 PO; LEVAQUIN750 MG; LEVAQUIN750 MG PO; LEVOTHYROXIN125 MCG PO; LIPITOR20 PO; LOFIBRA54 MG PO; LOP25 PO; LOTE10; LOTE10 PO; MIRALAXPKT PO; MULTI-VIT HP; NEPHRO-VITE PO; NITROQUICK0.4 MG; NORCO1 TA1 PO; P10 PO; PAX20 PO; PRAVAC PO; PRILO PO; PROAIR HFA INH; PROVENTSOL INH; PROVHFA INH; SODBICAR10 PO; SPIRIVA INH; STERAPRED DS10 MG; SYN1 PO; TAMIFLU PO; VANCO500 IV; Z10 PO; ZESTRIL2.5 MG PO; [UNRECOGNIZED DRUG - OTHER]; [UNRECOGNIZED DRUG - OTHER] PO
[2017-02-09 20:37] LABS: A/G RATIO 1.2 (0.7-1.9); ALBUMIN 3.7 G/DL (3.5-5.0); ALKALINE PHOSPHATASE 80 U/L (45-117); GLOBULIN 3.1 G/DL (2.5-4.1); GLUCOSE, SERUM 137 MG/DL (60-99); PLATELET ESTIMATE ADQ (ADEQUATE); POTASSIUM, SERUM 4.9 MMOL/L (3.5-5.3); TOTAL BILIRUBIN 3.8 MG/DL (0-1.2)
[2017-02-09 20:38] LABS: POLYCHROMASIA 1+ (2-5/OIF) (0-1/OIF)
[2017-02-09 21:30] LABS: ASCORBIC ACID (UR NOT ORDER) NEG (NEG); BILIRUBIN, URINE NEGATIVE (NEG); ER URINALYSIS TAT 0 Hrs 00 Mins; KETONE, URINE NEGATIVE (NEG); LEUKOCYTE ESTERASE(NOT OR NEG (NEG); NITRITE (URINE) NEG (NEG); WBC (NOT ORDERED) (RFLEX) 0 (0-5)
[2017-02-09] MEDS ORDERED: LIPITOR10 PO (21:55)
[2017-02-09] MEDS ORDERED: FENOFIBRATE 54 MG PO (21:55)
[2017-02-09] MEDS ORDERED: CORTEF20 MG PO (21:55)
[2017-02-09] MEDS ORDERED: PAXIL30 MG PO (21:56)
[2017-02-09] MEDS ORDERED: RANEXA1000 MG PO (21:56)
[2017-02-09] MEDS ORDERED: PROAIR HFA INH (21:56)
[2017-02-09] MEDS ORDERED: VITD PO (21:56)
[2017-02-09] MEDS ORDERED: SPIRIVA INH (21:57)
[2017-02-09] MEDS ORDERED: DULERA 200 MCG/13 GM INH (21:58)
[2017-02-09] MEDS ORDERED: HALF81 PO (21:58)
[2017-02-09] MEDS ORDERED: C5 PO (21:59)
[2017-02-09] MEDS ORDERED: SYN112 PO (21:59)
[2017-02-09] MEDS ORDERED: C25 PO (22:00)
[2017-02-09] MEDS ORDERED: DEMA100 PO (22:01)
[2017-02-09] MEDS ORDERED: PRILOSEC OTC20 MG PO (22:01)
[2017-02-10 00:12] LABS: CK-MB 8.2 NG/ML
[2017-02-10 00:13] LABS: CKMB INDEX (NOT ORD) 5.4; CPK 152 U/L (0-200)
[2017-02-10 00:14] LABS: TROPONIN I 0.12 NG/ML (<0.05)
[2017-02-10 03:48] LABS: BASOPHILS 0.1 %; BASOPHILS ABSOLUTE 0.01 10/3/uL (0.0-0.16); EOSINOPHILS 0.2 %; EOSINOPHILS ABSOLUTE 0.02 10/3/uL (0.0-0.53); HEMATOCRIT 40.5 % (40.0-51.0); HEMOGLOBIN 13.3 g/dL (13.6-17.8); IMMATURE GRANULOCYTES 0.4 %; IMMATURE GRANULOCYTES ABSOLUTE 0.04 10/3/uL (0.0-0.11); LYMPHOCYTES 4.6 %; LYMPHOCYTES ABSOLUTE 0.45 10/3/uL (0.67-4.30); MEAN CORPUS HGB CONC 32.8 g/dL (32.0-36.0); MEAN CORPUSCULAR HEMOGLOB 36.6 pg (26.0-34.0); MEAN CORPUSCULAR VOLUME 111.6 fL (80-100); MEAN PLATELET VOLUME 10.2 fL (9.2-13.0); MONOCYTES 4.3 %; MONOCYTES ABSOLUTE 0.42 10/3/uL (0.21-1.20); NEUTROPHILS 90.4 %; NEUTROPHILS ABSOLUTE 8.91 10/3/uL (2.02-8.40); PLATELET COUNT 176 10/3/uL (150-400); RBC DISTRIBUTION WIDTH 20.5 % (12.0-16.0); RED CELL COUNT 3.63 10/6/uL (4.7-6.1); WHITE BLOOD CELLS 9.9 10/3/uL (4.5-10.5)
[2017-02-10 03:50] LABS: MANUAL DIFF NO %
[2017-02-10 03:53] LABS: PARTIAL THROMBO TIME 39.9 SEC (22.5-37.2)
[2017-02-10 04:00] LABS: INTERNATIONAL NORMAL RATI 7.1 UNITS (-); PROTIME (NOT ORD) 60.4 SEC (12.0-14.5)
[2017-02-10 04:08] LABS: BUN (BLOOD UREA NITROGEN) 80 MG/DL (6-23); CALCIUM, SERUM 9.5 MG/DL (8.5-10.4); CHLORIDE, SERUM 99 MMOL/L (96-112); CK-MB 8.6 NG/ML; CO2 (CARBON DIOXIDE) 29 MMOL/L (24-34); CPK 163 U/L (0-200); CREATININE 4.21 MG/DL (0.70-1.30); FREE T4 1.29 NG/DL (0.76-1.46); GFR AFRICAN AMERICAN 15 ML/MIN (>=60); GFR NON AFRICAN AMERICAN 13 ML/MIN (>=60); POTASSIUM, SERUM 4.9 MMOL/L (3.5-5.3); SODIUM, SERUM 139 MMOL/L (135-148)
[2017-02-10 04:09] LABS: CKMB INDEX (NOT ORD) 5.3; GLUCOSE, SERUM 99 MG/DL (60-99); TROPONIN I 0.13 NG/ML (<0.05)
[2017-02-10 04:18] LABS: ANISOCYTOSIS 1+ (5-10/OIF) (0-5/OIF); PLATELET ESTIMATE ADQ (ADEQUATE); POLYCHROMASIA 1+ (2-5/OIF) (0-1/OIF)
[2017-02-10 13:41] LABS: CK-MB 9.6 NG/ML
[2017-02-10 13:42] LABS: CKMB INDEX (NOT ORD) 3.6; TROPONIN I 0.15 NG/ML (<0.05)
[2017-02-10 14:13] LABS: HEPATITIS B SURFACE ANTIGEN NON-REACTIVE (NON-REACT)
[2017-02-10 14:33] LABS: ALLENS TEST Pos; BE (BASE EXCESS) 0.8 MEQ/L (0 +/- 2.5); HCO3 (ACTUAL BICARBONATE) 20.7 MEQ/L (23-27); HEMOBLOGIN CONTENT 12.5 G/DL (14-18); INSTRUMENT SERIAL # 8083; METHEMOGLOBIN 0.2 % (0-3); O2 CONTENT 17.1 VOL% (18-24); PCO2 (CO2 TENSION) 22 MMHG (35-45); PO2 (O2 TENSION) 107 MMHG (79-93); SAMPLE Arterial
[2017-02-10 14:40] LABS: HEPATITIS B CORE AB IGM NON-REACTIVE (NON-REAC); HEPATITIS C ANTIBODY NON-REACTIVE (NON-REACT)
[2017-02-10 14:41] LABS: HIV COMBO NON-REACTIVE (NON REAC)
[2017-02-10 14:42] LABS: HEP A ANTIBODY IGM NON-REACTIVE (NON-REACT)
[2017-02-10 16:35] LABS: INTERNATIONAL NORMAL RATI 4.7 UNITS (-)
[2017-02-10 16:36] LABS: PROTIME (NOT ORD) 43.9 SEC (12.0-14.5)
[2017-02-10 16:43] LABS: BUN (BLOOD UREA NITROGEN) 82 MG/DL (6-23); CALCIUM, SERUM 9.5 MG/DL (8.5-10.4); CHLORIDE, SERUM 98 MMOL/L (96-112); CK-MB 9.7 NG/ML; CO2 (CARBON DIOXIDE) 28 MMOL/L (24-34); CPK 293 U/L (0-200); CREATININE 4.61 MG/DL (0.70-1.30); GFR AFRICAN AMERICAN 14 ML/MIN (>=60); GFR NON AFRICAN AMERICAN 12 ML/MIN (>=60); GLUCOSE, SERUM 100 MG/DL (60-99); POTASSIUM, SERUM 4.7 MMOL/L (3.5-5.3); SODIUM, SERUM 140 MMOL/L (135-148)
[2017-02-10 16:45] LABS: CKMB INDEX (NOT ORD) 3.3; TROPONIN I 0.17 NG/ML (<0.05)
[2017-02-10 23:19] LABS: BE (BASE EXCESS) 0.4 MEQ/L (0 +/- 2.5); CARBOXYHEMOGLOBIN 1.2 % (0-3); HCO3 (ACTUAL BICARBONATE) 24.5 MEQ/L (23-27); INSTRUMENT SERIAL # 8083; PCO2 (CO2 TENSION) 38 MMHG (35-45); PO2 (O2 TENSION) 101 MMHG (79-93); pH 7.43 (7.37-7.43)
[2017-02-10 23:20] LABS: ALLENS TEST Pos; DEVICE NC; HEMOBLOGIN CONTENT 12.2 G/DL (14-18); METHEMOGLOBIN 0.3 % (0-3); O2 CONTENT 16.6 VOL% (18-24); OPERATOR ID 31061; SAMPLE Arterial
[2017-02-10 23:39] LABS: A/G RATIO 1.2 (0.7-1.9); ALBUMIN 3.3 G/DL (3.5-5.0); BUN (BLOOD UREA NITROGEN) 83 MG/DL (6-23); CALCIUM, SERUM 9.3 MG/DL (8.5-10.4); CHLORIDE, SERUM 100 MMOL/L (96-112); CO2 (CARBON DIOXIDE) 29 MMOL/L (24-34); CREATININE 4.66 MG/DL (0.70-1.30); GFR AFRICAN AMERICAN 14 ML/MIN (>=60); GFR NON AFRICAN AMERICAN 12 ML/MIN (>=60); GLOBULIN 2.7 G/DL (2.5-4.1); GLUCOSE, SERUM 99 MG/DL (60-99); POTASSIUM, SERUM 4.4 MMOL/L (3.5-5.3); SGOT(AST) 51 U/L (5-40); SGPT(ALT) 44 U/L (5-65); SODIUM, SERUM 140 MMOL/L (135-148); TOTAL BILIRUBIN 3.5 MG/DL (0-1.2)
[2017-02-10 23:40] LABS: ALKALINE PHOSPHATASE 65 U/L (45-117); PHOSPHORUS, SERUM 5.2 MG/DL (2.5-4.5)
[2017-02-11 03:17] LABS: BASOPHILS 0.1 %; BASOPHILS ABSOLUTE 0.01 10/3/uL (0.0-0.16); EOSINOPHILS 0 %; HEMATOCRIT 38.1 % (40.0-51.0); HEMOGLOBIN 12.2 g/dL (13.6-17.8); IMMATURE GRANULOCYTES 0.2 %; IMMATURE GRANULOCYTES ABSOLUTE 0.02 10/3/uL (0.0-0.11); LYMPHOCYTES 2.4 %; LYMPHOCYTES ABSOLUTE 0.21 10/3/uL (0.67-4.30); MEAN CORPUSCULAR HEMOGLOB 35.9 pg (26.0-34.0); MEAN CORPUSCULAR VOLUME 112.1 fL (80-100); MONOCYTES 1.9 %; MONOCYTES ABSOLUTE 0.17 10/3/uL (0.21-1.20); NEUTROPHILS 95.4 %; NEUTROPHILS ABSOLUTE 8.42 10/3/uL (2.02-8.40); PLATELET COUNT 129 10/3/uL (150-400); RBC DISTRIBUTION WIDTH 20.9 % (12.0-16.0); WHITE BLOOD CELLS 8.8 10/3/uL (4.5-10.5)
[2017-02-11 03:19] LABS: MANUAL DIFF NO %
[2017-02-11 03:22] LABS: INTERNATIONAL NORMAL RATI 3.5 UNITS (-); PARTIAL THROMBO TIME 37.5 SEC (22.5-37.2)
[2017-02-11 03:32] LABS: ALBUMIN 3.5 G/DL (3.5-5.0); CHLORIDE, SERUM 97 MMOL/L (96-112); CO2 (CARBON DIOXIDE) 28 MMOL/L (24-34); CREATININE 4.18 MG/DL (0.70-1.30); GFR AFRICAN AMERICAN 16 ML/MIN (>=60); GFR NON AFRICAN AMERICAN 13 ML/MIN (>=60); GLUCOSE, SERUM 83 MG/DL (60-99); PHOSPHORUS, SERUM 4.8 MG/DL (2.5-4.5); POTASSIUM, SERUM 4.4 MMOL/L (3.5-5.3); SODIUM, SERUM 140 MMOL/L (135-148)
[2017-02-11 03:33] LABS: BUN (BLOOD UREA NITROGEN) 75 MG/DL (6-23)
[2017-02-11 03:49] LABS: CARBOXYHEMOGLOBIN 1.2 % (0-3); DEVICE NC; HCO3 (ACTUAL BICARBONATE) 20.5 MEQ/L (23-27); HEMOBLOGIN CONTENT 12.8 G/DL (14-18); INSTRUMENT SERIAL # 8083; METHEMOGLOBIN 0.3 % (0-3); O2 CONTENT 17.9 VOL% (18-24); OPERATOR ID 23712; PCO2 (CO2 TENSION) 35 MMHG (35-45); PO2 (O2 TENSION) 162 MMHG (79-93); SAMPLE Arterial; pH 7.38 (7.37-7.43)
[2017-02-11 03:50] LABS: ALLENS TEST Pos
[2017-02-11 04:00] LABS: ANISOCYTOSIS 1+ (5-10/OIF) (0-5/OIF); BURR CELLS 1+ (3-10/OIF) (0-2/OIF); PLATELET ESTIMATE SLT DEC (ADEQUATE); RBC MORPHOLOGY ABN (NORMAL)
[2017-02-11 05:54] LABS: CPK (IF ELEVATED MB BANDS) 368 U/L (0-200); TROPONIN I 0.14 NG/ML (<0.05)
[2017-02-11 06:10] LABS: CK-MB 11.9 NG/ML
[2017-02-11 06:11] LABS: CKMB INDEX (NOT ORD) 3.2
[2017-02-11 09:59] LABS: BASOPHILS 0 %; EOSINOPHILS 0 %; HEMATOCRIT 36.7 % (40.0-51.0); HEMOGLOBIN 11.8 g/dL (13.6-17.8); IMMATURE GRANULOCYTES 0.4 %; IMMATURE GRANULOCYTES ABSOLUTE 0.03 10/3/uL (0.0-0.11); LYMPHOCYTES ABSOLUTE 0.25 10/3/uL (0.67-4.30); MEAN CORPUS HGB CONC 32.2 g/dL (32.0-36.0); MEAN CORPUSCULAR HEMOGLOB 35.8 pg (26.0-34.0); MEAN CORPUSCULAR VOLUME 111.2 fL (80-100); MEAN PLATELET VOLUME 10.2 fL (9.2-13.0); MONOCYTES 1.7 %; MONOCYTES ABSOLUTE 0.14 10/3/uL (0.21-1.20); NEUTROPHILS 94.9 %; NEUTROPHILS ABSOLUTE 7.88 10/3/uL (2.02-8.40); PLATELET COUNT 124 10/3/uL (150-400); WHITE BLOOD CELLS 8.3 10/3/uL (4.5-10.5)
[2017-02-11 10:00] LABS: CK-MB 20.5 NG/ML; CPK 621 U/L (0-200)
[2017-02-11 10:01] LABS: CKMB INDEX (NOT ORD) 3.3; RHEUMATOID FACTOR QUANT < 10 IU/ML (0-15); TROPONIN I 0.13 NG/ML (<0.05)
[2017-02-11 10:01] LABS: MANUAL DIFF NO %
[2017-02-11 10:17] LABS: PROCALCITONIN 0.87 ng/mL (<0.5)
[2017-02-11 10:32] LABS: ANISOCYTOSIS 1+ (5-10/OIF) (0-5/OIF); PLATELET ESTIMATE SLT DEC (ADEQUATE)
[2017-02-11 11:08] LABS: ALBUMIN 3.1 G/DL (3.5-5.0); ALKALINE PHOSPHATASE 67 U/L (45-117); BUN (BLOOD UREA NITROGEN) 53 MG/DL (6-23); CALCIUM, SERUM 9.2 MG/DL (8.5-10.4); CHLORIDE, SERUM 102 MMOL/L (96-112); CO2 (CARBON DIOXIDE) 17 MMOL/L (24-34); DIRECT BILIRUBIN 2.3 MG/DL (0.0-0.4); GFR AFRICAN AMERICAN 21 ML/MIN (>=60); GFR NON AFRICAN AMERICAN 18 ML/MIN (>=60); GLUCOSE, SERUM 73 MG/DL (60-99); INDIRECT BILIRUBIN(NOT ORDER) 0.9 MG/DL (0.1-0.9); POTASSIUM, SERUM 4.7 MMOL/L (3.5-5.3); SGOT(AST) 68 U/L (5-40); SGPT(ALT) 44 U/L (5-65); SODIUM, SERUM 139 MMOL/L (135-148); TOTAL BILIRUBIN 3.2 MG/DL (0-1.2); TOTAL PROTEIN 6.2 G/DL (6.0-8.5)
[2017-02-11 12:28] LABS: BASOPHILS 0.1 %; BASOPHILS ABSOLUTE 0.01 10/3/uL (0.0-0.16); EOSINOPHILS 0 %; HEMATOCRIT 34.9 % (40.0-51.0); IMMATURE GRANULOCYTES 0.5 %; IMMATURE GRANULOCYTES ABSOLUTE 0.05 10/3/uL (0.0-0.11); LYMPHOCYTES 7.4 %; LYMPHOCYTES ABSOLUTE 0.69 10/3/uL (0.67-4.30); MANUAL DIFF NO %; MEAN CORPUS HGB CONC 31.5 g/dL (32.0-36.0); MEAN CORPUSCULAR HEMOGLOB 35.4 pg (26.0-34.0); MEAN CORPUSCULAR VOLUME 112.2 fL (80-100); MEAN PLATELET VOLUME 10.2 fL (9.2-13.0); MONOCYTES 1.8 %; MONOCYTES ABSOLUTE 0.17 10/3/uL (0.21-1.20); NEUTROPHILS 90.2 %; NEUTROPHILS ABSOLUTE 8.39 10/3/uL (2.02-8.40); PLATELET COUNT 121 10/3/uL (150-400); RBC DISTRIBUTION WIDTH 21.1 % (12.0-16.0); RED CELL COUNT 3.11 10/6/uL (4.7-6.1); WHITE BLOOD CELLS 9.3 10/3/uL (4.5-10.5)
[2017-02-11 12:47] LABS: A/G RATIO 1.1 (0.7-1.9); ALBUMIN 2.7 G/DL (3.5-5.0); ALKALINE PHOSPHATASE 60 U/L (45-117); BUN (BLOOD UREA NITROGEN) 53 MG/DL (6-23); CALCIUM, SERUM 9.4 MG/DL (8.5-10.4); CHLORIDE, SERUM 103 MMOL/L (96-112); CK-MB 19.9 NG/ML; CPK 615 U/L (0-200); CREATININE 3.16 MG/DL (0.70-1.30); GFR AFRICAN AMERICAN 22 ML/MIN (>=60); GFR NON AFRICAN AMERICAN 19 ML/MIN (>=60); GLOBULIN 2.5 G/DL (2.5-4.1); PHOSPHORUS, SERUM 5.6 MG/DL (2.5-4.5); POTASSIUM, SERUM 5.1 MMOL/L (3.5-5.3); SGOT(AST) 63 U/L (5-40); SGPT(ALT) 39 U/L (5-65); SODIUM, SERUM 143 MMOL/L (135-148); TOTAL PROTEIN 5.2 G/DL (6.0-8.5)
[2017-02-11 12:49] LABS: CKMB INDEX (NOT ORD) 3.2; CO2 (CARBON DIOXIDE) 23 MMOL/L (24-34); GLUCOSE, SERUM 131 MG/DL (60-99); TOTAL BILIRUBIN 3.9 MG/DL (0-1.2); TROPONIN I 0.17 NG/ML (<0.05)
[2017-02-11 12:56] LABS: BE (BASE EXCESS) -10.6 MEQ/L (0 +/- 2.5); CARBOXYHEMOGLOBIN 0.6 % (0-3); HCO3 (ACTUAL BICARBONATE) 14.9 MEQ/L (23-27); HEMOBLOGIN CONTENT 11.9 G/DL (14-18); INSTRUMENT SERIAL # 8083; METHEMOGLOBIN 0.3 % (0-3); MODE CMV; O2 CONTENT 17.7 VOL% (18-24); OPERATOR ID 35188; PCO2 (CO2 TENSION) 32 MMHG (35-45); PO2 (O2 TENSION) 421 MMHG (79-93); SAMPLE Arterial; TIDAL VOLUME 750 ML; pH 7.28 (7.37-7.43)
[2017-02-11 13:15] LABS: PROCALCITONIN 0.94 ng/mL (<0.5)
[2017-02-11 13:34] LABS: ANISOCYTOSIS 1+ (5-10/OIF) (0-5/OIF); PLATELET ESTIMATE SLT DEC (ADEQUATE)
[2017-02-11 16:19] LABS: BASOPHILS 0.1 %; BASOPHILS ABSOLUTE 0.01 10/3/uL (0.0-0.16); EOSINOPHILS 0 %; HEMOGLOBIN 11.2 g/dL (13.6-17.8); IMMATURE GRANULOCYTES 0.2 %; IMMATURE GRANULOCYTES ABSOLUTE 0.02 10/3/uL (0.0-0.11); LYMPHOCYTES ABSOLUTE 0.33 10/3/uL (0.67-4.30); MEAN CORPUSCULAR HEMOGLOB 35.3 pg (26.0-34.0); MEAN CORPUSCULAR VOLUME 110.4 fL (80-100); MEAN PLATELET VOLUME 9.9 fL (9.2-13.0); MONOCYTES 2.7 %; MONOCYTES ABSOLUTE 0.29 10/3/uL (0.21-1.20); NEUTROPHILS ABSOLUTE 10.26 10/3/uL (2.02-8.40); PLATELET COUNT 135 10/3/uL (150-400); RBC DISTRIBUTION WIDTH 21.1 % (12.0-16.0); RED CELL COUNT 3.17 10/6/uL (4.7-6.1); WHITE BLOOD CELLS 10.9 10/3/uL (4.5-10.5)
[2017-02-11 16:20] LABS: MANUAL DIFF NO %
[2017-02-11 16:33] LABS: CALCIUM, SERUM 9.4 MG/DL (8.5-10.4); CHLORIDE, SERUM 103 MMOL/L (96-112); CO2 (CARBON DIOXIDE) 21 MMOL/L (24-34); CPK 599 U/L (0-200); CREATININE 3.42 MG/DL (0.70-1.30); GFR AFRICAN AMERICAN 20 ML/MIN (>=60); GFR NON AFRICAN AMERICAN 17 ML/MIN (>=60); POTASSIUM, SERUM 4.7 MMOL/L (3.5-5.3); SODIUM, SERUM 142 MMOL/L (135-148)
[2017-02-11 16:34] LABS: BUN (BLOOD UREA NITROGEN) 59 MG/DL (6-23); CKMB INDEX (NOT ORD) 3.7; GLUCOSE, SERUM 97 MG/DL (60-99); TROPONIN I 0.36 NG/ML (<0.05)
[2017-02-11 17:20] LABS: ANISOCYTOSIS 1+ (5-10/OIF) (0-5/OIF); PLATELET ESTIMATE SLT DEC (ADEQUATE); POLYCHROMASIA 1+ (2-5/OIF) (0-1/OIF)
[2017-02-11 21:45] LABS: BE (BASE EXCESS) 0.1 MEQ/L (0 +/- 2.5); HCO3 (ACTUAL BICARBONATE) 22.5 MEQ/L (23-27); HEMOBLOGIN CONTENT 12.1 G/DL (14-18); INSTRUMENT SERIAL # 8083; METHEMOGLOBIN 0.2 % (0-3); MODE PCV; O2 CONTENT 16.8 VOL% (18-24); OPERATOR ID 35785; PCO2 (CO2 TENSION) 30 MMHG (35-45); PO2 (O2 TENSION) 130 MMHG (79-93); SAMPLE Arterial
[2017-02-11 21:56] LABS: BASOPHILS 0 %; EOSINOPHILS 0 %; HEMOGLOBIN 11.4 g/dL (13.6-17.8); IMMATURE GRANULOCYTES 0.3 %; IMMATURE GRANULOCYTES ABSOLUTE 0.04 10/3/uL (0.0-0.11); LYMPHOCYTES 3.9 %; LYMPHOCYTES ABSOLUTE 0.45 10/3/uL (0.67-4.30); MEAN CORPUS HGB CONC 32.6 g/dL (32.0-36.0); MEAN CORPUSCULAR HEMOGLOB 35.6 pg (26.0-34.0); MEAN CORPUSCULAR VOLUME 109.4 fL (80-100); MEAN PLATELET VOLUME 9.9 fL (9.2-13.0); MONOCYTES 1.8 %; MONOCYTES ABSOLUTE 0.21 10/3/uL (0.21-1.20); NEUTROPHILS ABSOLUTE 10.73 10/3/uL (2.02-8.40); PLATELET COUNT 137 10/3/uL (150-400); RBC DISTRIBUTION WIDTH 20.8 % (12.0-16.0); WHITE BLOOD CELLS 11.4 10/3/uL (4.5-10.5)
[2017-02-11 21:59] LABS: MANUAL DIFF NO %
[2017-02-11 22:12] LABS: CALCIUM, SERUM 9.3 MG/DL (8.5-10.4); CHLORIDE, SERUM 104 MMOL/L (96-112); CO2 (CARBON DIOXIDE) 24 MMOL/L (24-34); CREATININE 3.63 MG/DL (0.70-1.30); GFR AFRICAN AMERICAN 19 ML/MIN (>=60); GFR NON AFRICAN AMERICAN 16 ML/MIN (>=60); POTASSIUM, SERUM 4.8 MMOL/L (3.5-5.3); SODIUM, SERUM 142 MMOL/L (135-148)
[2017-02-11 22:13] LABS: BUN (BLOOD UREA NITROGEN) 64 MG/DL (6-23); GLUCOSE, SERUM 132 MG/DL (60-99)
[2017-02-11 22:55] LABS: PHOSPHORUS, SERUM 4.9 MG/DL (2.5-4.5)
[2017-02-12 04:11] LABS: HEMOGLOBIN 10.8 g/dL (13.6-17.8); MEAN CORPUS HGB CONC 32.7 g/dL (32.0-36.0); MEAN PLATELET VOLUME 10.3 fL (9.2-13.0); PLATELET COUNT 119 10/3/uL (150-400); RBC DISTRIBUTION WIDTH 20.9 % (12.0-16.0); WHITE BLOOD CELLS 9.9 10/3/uL (4.5-10.5)
[2017-02-12 04:13] LABS: MANUAL DIFF YES %
[2017-02-12 04:26] LABS: CALCIUM, SERUM 8.9 MG/DL (8.5-10.4); CHLORIDE, SERUM 104 MMOL/L (96-112); CO2 (CARBON DIOXIDE) 26 MMOL/L (24-34); CREATININE 4.05 MG/DL (0.70-1.30); GFR AFRICAN AMERICAN 16 ML/MIN (>=60); GFR NON AFRICAN AMERICAN 14 ML/MIN (>=60); PHOSPHORUS, SERUM 5.2 MG/DL (2.5-4.5); SODIUM, SERUM 141 MMOL/L (135-148)
[2017-02-12 04:27] LABS: BUN (BLOOD UREA NITROGEN) 70 MG/DL (6-23); GLUCOSE, SERUM 167 MG/DL (60-99)
[2017-02-12 04:29] LABS: INTERNATIONAL NORMAL RATI 3.4 UNITS (-); PARTIAL THROMBO TIME 37.1 SEC (22.5-37.2)
[2017-02-12 04:52] LABS: ALLENS TEST Neg; BE (BASE EXCESS) -0.9 MEQ/L (0 +/- 2.5); CARBOXYHEMOGLOBIN 0.8 % (0-3); HCO3 (ACTUAL BICARBONATE) 22.1 MEQ/L (23-27); INSTRUMENT SERIAL # 8083; METHEMOGLOBIN 0.2 % (0-3); MODE PCV; O2 CONTENT 16.7 VOL% (18-24); OPERATOR ID 35785; PCO2 (CO2 TENSION) 32 MMHG (35-45); PO2 (O2 TENSION) 134 MMHG (79-93); SAMPLE Arterial; pH 7.46 (7.37-7.43)
[2017-02-12 05:10] LABS: ANISOCYTOSIS 1+ (5-10/OIF) (0-5/OIF); BAND NEUTROPHILS 4 %; LYMPHOCYTES 3 %; MONOCYTES 3 %; NEUTROPHILS ABSOLUTE (CALC) 9.31 10/3/uL (2.02-8.40); PLATELET ESTIMATE SLT DEC (ADEQUATE); SEGMENTED NEUTROPHIL (0) 90 %; TOTAL NUCLEATED CELLS 100
[2017-02-12 08:22] LABS: BE (BASE EXCESS) -4.2 MEQ/L (0 +/- 2.5); CARBOXYHEMOGLOBIN 0.6 % (0-3); HCO3 (ACTUAL BICARBONATE) 18.1 MEQ/L (23-27); HEMOBLOGIN CONTENT 11.2 G/DL (14-18); INSTRUMENT SERIAL # 8083; METHEMOGLOBIN 0.3 % (0-3); O2 CONTENT 16.1 VOL% (18-24); OPERATOR ID 35188; PCO2 (CO2 TENSION) 25 MMHG (35-45); PO2 (O2 TENSION) 241 MMHG (79-93); SAMPLE Arterial; pH 7.47 (7.37-7.43)
[2017-02-12 13:15] LABS: BASOPHILS 0 %; EOSINOPHILS 0 %; HEMATOCRIT 31.6 % (40.0-51.0); HEMOGLOBIN 10.2 g/dL (13.6-17.8); IMMATURE GRANULOCYTES 0.4 %; IMMATURE GRANULOCYTES ABSOLUTE 0.03 10/3/uL (0.0-0.11); LYMPHOCYTES 3.9 %; LYMPHOCYTES ABSOLUTE 0.33 10/3/uL (0.67-4.30); MEAN CORPUS HGB CONC 32.3 g/dL (32.0-36.0); MEAN CORPUSCULAR HEMOGLOB 35.5 pg (26.0-34.0); MEAN CORPUSCULAR VOLUME 110.1 fL (80-100); MEAN PLATELET VOLUME 10.2 fL (9.2-13.0); MONOCYTES 3.5 %; MONOCYTES ABSOLUTE 0.29 10/3/uL (0.21-1.20); NEUTROPHILS 92.2 %; NEUTROPHILS ABSOLUTE 7.71 10/3/uL (2.02-8.40); PLATELET COUNT 87 10/3/uL (150-400); RED CELL COUNT 2.87 10/6/uL (4.7-6.1); WHITE BLOOD CELLS 8.4 10/3/uL (4.5-10.5)
[2017-02-12 13:19] LABS: MANUAL DIFF NO %
[2017-02-12 13:25] LABS: ALBUMIN 2.8 G/DL (3.5-5.0); CALCIUM, SERUM 8.5 MG/DL (8.5-10.4); CHLORIDE, SERUM 105 MMOL/L (96-112); CO2 (CARBON DIOXIDE) 24 MMOL/L (24-34); CREATININE 4.38 MG/DL (0.70-1.30); GFR AFRICAN AMERICAN 15 ML/MIN (>=60); GFR NON AFRICAN AMERICAN 13 ML/MIN (>=60); GLUCOSE, SERUM 180 MG/DL (60-99); PHOSPHORUS, SERUM 5.4 MG/DL (2.5-4.5); SODIUM, SERUM 142 MMOL/L (135-148)
[2017-02-12 13:26] LABS: BUN (BLOOD UREA NITROGEN) 77 MG/DL (6-23)
[2017-02-12 13:45] LABS: ANISOCYTOSIS 1+ (5-10/OIF) (0-5/OIF); PLATELET ESTIMATE DEC (ADEQUATE); RBC MORPHOLOGY ABN (NORMAL)
[2017-02-12 17:03] LABS: A/G RATIO 1.2 (0.7-1.9); ALKALINE PHOSPHATASE 54 U/L (45-117); GLOBULIN 2.3 G/DL (2.5-4.1); SGOT(AST) 97 U/L (5-40); SGPT(ALT) 42 U/L (5-65); TOTAL BILIRUBIN 3.3 MG/DL (0-1.2); TOTAL PROTEIN 5.1 G/DL (6.0-8.5)
[2017-02-12 19:54] LABS: BUN (BLOOD UREA NITROGEN) 70 MG/DL (6-23); CALCIUM, SERUM 7.1 MG/DL (8.5-10.4); CHLORIDE, SERUM 107 MMOL/L (96-112); CO2 (CARBON DIOXIDE) 23 MMOL/L (24-34); CREATININE 3.84 MG/DL (0.70-1.30); GFR AFRICAN AMERICAN 17 ML/MIN (>=60); GFR NON AFRICAN AMERICAN 15 ML/MIN (>=60); GLUCOSE, SERUM 166 MG/DL (60-99); PHOSPHORUS, SERUM 4.6 MG/DL (2.5-4.5); POTASSIUM, SERUM 4.9 MMOL/L (3.5-5.3); SODIUM, SERUM 145 MMOL/L (135-148)
[2017-02-12 21:50] LABS: BASOPHILS 0 %; EOSINOPHILS 0 %; HEMATOCRIT 29.8 % (40.0-51.0); HEMOGLOBIN 9.7 g/dL (13.6-17.8); IMMATURE GRANULOCYTES 0.3 %; IMMATURE GRANULOCYTES ABSOLUTE 0.03 10/3/uL (0.0-0.11); LYMPHOCYTES ABSOLUTE 0.32 10/3/uL (0.67-4.30); MEAN CORPUS HGB CONC 32.6 g/dL (32.0-36.0); MEAN CORPUSCULAR HEMOGLOB 35.4 pg (26.0-34.0); MEAN CORPUSCULAR VOLUME 108.8 fL (80-100); MEAN PLATELET VOLUME 10.3 fL (9.2-13.0); MONOCYTES 3.4 %; MONOCYTES ABSOLUTE 0.36 10/3/uL (0.21-1.20); NEUTROPHILS 93.3 %; NEUTROPHILS ABSOLUTE 9.84 10/3/uL (2.02-8.40); PLATELET COUNT 86 10/3/uL (150-400); RBC DISTRIBUTION WIDTH 21.3 % (12.0-16.0); RED CELL COUNT 2.74 10/6/uL (4.7-6.1); WHITE BLOOD CELLS 10.6 10/3/uL (4.5-10.5)
[2017-02-12 21:55] LABS: MANUAL DIFF NO %
[2017-02-12 22:08] LABS: BUN (BLOOD UREA NITROGEN) 61 MG/DL (6-23); CALCIUM, SERUM 6.4 MG/DL (8.5-10.4); CHLORIDE, SERUM 110 MMOL/L (96-112); CO2 (CARBON DIOXIDE) 20 MMOL/L (24-34); CREATININE 3.33 MG/DL (0.70-1.30); GFR AFRICAN AMERICAN 21 ML/MIN (>=60); GFR NON AFRICAN AMERICAN 18 ML/MIN (>=60); GLUCOSE, SERUM 152 MG/DL (60-99); POTASSIUM, SERUM 4.7 MMOL/L (3.5-5.3); SODIUM, SERUM 144 MMOL/L (135-148)
[2017-02-13 00:21] LABS: BE (BASE EXCESS) -7.4 MEQ/L (0 +/- 2.5); CARBOXYHEMOGLOBIN 0.6 % (0-3); HCO3 (ACTUAL BICARBONATE) 17.5 MEQ/L (23-27); HEMOBLOGIN CONTENT 10.9 G/DL (14-18); INSTRUMENT SERIAL # 8083; METHEMOGLOBIN 0.1 % (0-3); MODE PCV; O2 CONTENT 16.6 VOL% (18-24); OPERATOR ID 13861; PCO2 (CO2 TENSION) 33 MMHG (35-45); PO2 (O2 TENSION) 500 MMHG (79-93); SAMPLE Arterial; pH 7.34 (7.37-7.43)
[2017-02-13 01:39] LABS: BASOPHILS 0 %; EOSINOPHILS 0 %; HEMATOCRIT 31.4 % (40.0-51.0); HEMOGLOBIN 10.2 g/dL (13.6-17.8); IMMATURE GRANULOCYTES 0.2 %; IMMATURE GRANULOCYTES ABSOLUTE 0.02 10/3/uL (0.0-0.11); LYMPHOCYTES 2.3 %; LYMPHOCYTES ABSOLUTE 0.26 10/3/uL (0.67-4.30); MANUAL DIFF NO %; MEAN CORPUS HGB CONC 32.5 g/dL (32.0-36.0); MEAN CORPUSCULAR HEMOGLOB 35.9 pg (26.0-34.0); MEAN CORPUSCULAR VOLUME 110.6 fL (80-100); MEAN PLATELET VOLUME 10.4 fL (9.2-13.0); MONOCYTES 3.7 %; MONOCYTES ABSOLUTE 0.42 10/3/uL (0.21-1.20); NEUTROPHILS 93.8 %; NEUTROPHILS ABSOLUTE 10.72 10/3/uL (2.02-8.40); NUCLEATED RED BLOOD CELLS 0.2 /100WBC (0-0); PLATELET COUNT 93 10/3/uL (150-400); RBC DISTRIBUTION WIDTH 21.3 % (12.0-16.0); RED CELL COUNT 2.84 10/6/uL (4.7-6.1); WHITE BLOOD CELLS 11.4 10/3/uL (4.5-10.5)
[2017-02-13 01:46] LABS: CHLORIDE, SERUM 109 MMOL/L (96-112); CO2 (CARBON DIOXIDE) 22 MMOL/L (24-34); CREATININE 3.04 MG/DL (0.70-1.30); GFR AFRICAN AMERICAN 23 ML/MIN (>=60); GFR NON AFRICAN AMERICAN 20 ML/MIN (>=60); GLUCOSE, SERUM 158 MG/DL (60-99); POTASSIUM, SERUM 4.8 MMOL/L (3.5-5.3); SODIUM, SERUM 143 MMOL/L (135-148)
[2017-02-13 01:47] LABS: BUN (BLOOD UREA NITROGEN) 55 MG/DL (6-23); CALCIUM, SERUM 6.3 MG/DL (8.5-10.4)
[2017-02-13 02:29] LABS: ANISOCYTOSIS 1+ (5-10/OIF) (0-5/OIF); PLATELET ESTIMATE DEC (ADEQUATE)
[2017-02-13 03:56] LABS: BE (BASE EXCESS) -7.2 MEQ/L (0 +/- 2.5); INSTRUMENT SERIAL # 8083; PCO2 (CO2 TENSION) 35 MMHG (35-45); PO2 (O2 TENSION) 152 MMHG (79-93); pH 7.33 (7.37-7.43)
[2017-02-13 03:57] LABS: CARBOXYHEMOGLOBIN 0.9 % (0-3); HEMOBLOGIN CONTENT 10.7 G/DL (14-18); METHEMOGLOBIN 0.2 % (0-3); MODE PCV 32; OPERATOR ID 16503; SAMPLE Arterial
[2017-02-13 05:07] LABS: BASOPHILS 0 %; EOSINOPHILS 0 %; HEMATOCRIT 31.8 % (40.0-51.0); IMMATURE GRANULOCYTES 0.3 %; IMMATURE GRANULOCYTES ABSOLUTE 0.03 10/3/uL (0.0-0.11); LYMPHOCYTES 3.2 %; LYMPHOCYTES ABSOLUTE 0.36 10/3/uL (0.67-4.30); MEAN CORPUS HGB CONC 31.4 g/dL (32.0-36.0); MEAN CORPUSCULAR HEMOGLOB 35.1 pg (26.0-34.0); MEAN CORPUSCULAR VOLUME 111.6 fL (80-100); MEAN PLATELET VOLUME 10.4 fL (9.2-13.0); MONOCYTES 2.5 %; MONOCYTES ABSOLUTE 0.28 10/3/uL (0.21-1.20); PLATELET COUNT 90 10/3/uL (150-400); RBC DISTRIBUTION WIDTH 21.4 % (12.0-16.0); RED CELL COUNT 2.85 10/6/uL (4.7-6.1); WHITE BLOOD CELLS 11.2 10/3/uL (4.5-10.5)
[2017-02-13 05:09] LABS: MANUAL DIFF NO %
[2017-02-13 05:22] LABS: ALBUMIN 2.9 G/DL (3.5-5.0); CHLORIDE, SERUM 111 MMOL/L (96-112); CO2 (CARBON DIOXIDE) 20 MMOL/L (24-34); CREATININE 2.71 MG/DL (0.70-1.30); GFR AFRICAN AMERICAN 26 ML/MIN (>=60); GFR NON AFRICAN AMERICAN 23 ML/MIN (>=60); GLUCOSE, SERUM 152 MG/DL (60-99); PHOSPHORUS, SERUM 3.7 MG/DL (2.5-4.5); POTASSIUM, SERUM 4.9 MMOL/L (3.5-5.3); SODIUM, SERUM 143 MMOL/L (135-148)
[2017-02-13 05:23] LABS: BUN (BLOOD UREA NITROGEN) 48 MG/DL (6-23); CALCIUM, SERUM 7.4 MG/DL (8.5-10.4)
[2017-02-13 06:15] LABS: ANISOCYTOSIS 1+ (5-10/OIF) (0-5/OIF); PLATELET ESTIMATE DEC (ADEQUATE)
[2017-02-13 06:16] LABS: BURR CELLS 1+ (3-10/OIF) (0-2/OIF)
[2017-02-13 09:05] LABS: BASOPHILS 0 %; EOSINOPHILS 0 %; HEMATOCRIT 32.8 % (40.0-51.0); HEMOGLOBIN 10.3 g/dL (13.6-17.8); IMMATURE GRANULOCYTES 0.4 %; IMMATURE GRANULOCYTES ABSOLUTE 0.04 10/3/uL (0.0-0.11); LYMPHOCYTES 3.1 %; LYMPHOCYTES ABSOLUTE 0.35 10/3/uL (0.67-4.30); MEAN CORPUS HGB CONC 31.4 g/dL (32.0-36.0); MEAN CORPUSCULAR VOLUME 111.6 fL (80-100); MEAN PLATELET VOLUME 10.7 fL (9.2-13.0); MONOCYTES 1.9 %; MONOCYTES ABSOLUTE 0.22 10/3/uL (0.21-1.20); NEUTROPHILS 94.6 %; NEUTROPHILS ABSOLUTE 10.73 10/3/uL (2.02-8.40); PLATELET COUNT 85 10/3/uL (150-400); RBC DISTRIBUTION WIDTH 21.4 % (12.0-16.0); RED CELL COUNT 2.94 10/6/uL (4.7-6.1); WHITE BLOOD CELLS 11.3 10/3/uL (4.5-10.5)
[2017-02-13 09:06] LABS: MANUAL DIFF NO %
[2017-02-13 09:18] LABS: CALCIUM, SERUM 7.6 MG/DL (8.5-10.4); CHLORIDE, SERUM 111 MMOL/L (96-112); CO2 (CARBON DIOXIDE) 20 MMOL/L (24-34); CREATININE 2.43 MG/DL (0.70-1.30); GFR AFRICAN AMERICAN 30 ML/MIN (>=60); GFR NON AFRICAN AMERICAN 26 ML/MIN (>=60); GLUCOSE, SERUM 148 MG/DL (60-99); POTASSIUM, SERUM 4.8 MMOL/L (3.5-5.3); SODIUM, SERUM 140 MMOL/L (135-148)
[2017-02-13 09:19] LABS: BUN (BLOOD UREA NITROGEN) 43 MG/DL (6-23)
[2017-02-13 09:54] LABS: PLATELET ESTIMATE DEC (ADEQUATE)
[2017-02-13 09:55] LABS: ANISOCYTOSIS 1+ (5-10/OIF) (0-5/OIF); BURR CELLS 1+ (3-10/OIF) (0-2/OIF); POIKILOCYTOSIS 1+ (5-10/OIF) (0-5/OIF)
[2017-02-13 13:27] LABS: CALCIUM, SERUM 7.7 MG/DL (8.5-10.4); CHLORIDE, SERUM 111 MMOL/L (96-112); CO2 (CARBON DIOXIDE) 20 MMOL/L (24-34); CREATININE 2.19 MG/DL (0.70-1.30); GFR AFRICAN AMERICAN 34 ML/MIN (>=60); GFR NON AFRICAN AMERICAN 29 ML/MIN (>=60); GLUCOSE, SERUM 133 MG/DL (60-99); SODIUM, SERUM 143 MMOL/L (135-148)
[2017-02-13 13:28] LABS: BUN (BLOOD UREA NITROGEN) 39 MG/DL (6-23)
[2017-02-13 13:34] LABS: BASOPHILS 0 %; EOSINOPHILS 0 %; HEMATOCRIT 33.1 % (40.0-51.0); HEMOGLOBIN 10.3 g/dL (13.6-17.8); IMMATURE GRANULOCYTES 0.2 %; IMMATURE GRANULOCYTES ABSOLUTE 0.03 10/3/uL (0.0-0.11); LYMPHOCYTES 2.4 %; MANUAL DIFF NO %; MEAN CORPUS HGB CONC 31.1 g/dL (32.0-36.0); MEAN CORPUSCULAR VOLUME 112.6 fL (80-100); MEAN PLATELET VOLUME 10.4 fL (9.2-13.0); MONOCYTES ABSOLUTE 0.38 10/3/uL (0.21-1.20); NEUTROPHILS 94.4 %; NEUTROPHILS ABSOLUTE 11.85 10/3/uL (2.02-8.40); PLATELET COUNT 86 10/3/uL (150-400); RBC DISTRIBUTION WIDTH 21.5 % (12.0-16.0); RED CELL COUNT 2.94 10/6/uL (4.7-6.1); WHITE BLOOD CELLS 12.6 10/3/uL (4.5-10.5)
[2017-02-13 13:52] LABS: ANISOCYTOSIS 1+ (5-10/OIF) (0-5/OIF); PLATELET ESTIMATE DEC (ADEQUATE); POIKILOCYTOSIS 1+ (5-10/OIF) (0-5/OIF); POLYCHROMASIA 1+ (2-5/OIF) (0-1/OIF)
[2017-02-13 13:53] LABS: BURR CELLS 1+ (3-10/OIF) (0-2/OIF); GIANT PLATELET RARE
[2017-02-13 17:04] LABS: BASOPHILS 0 %; EOSINOPHILS 0 %; HEMATOCRIT 35.2 % (40.0-51.0); HEMOGLOBIN 10.9 g/dL (13.6-17.8); IMMATURE GRANULOCYTES 0.2 %; IMMATURE GRANULOCYTES ABSOLUTE 0.02 10/3/uL (0.0-0.11); LYMPHOCYTES 2.6 %; LYMPHOCYTES ABSOLUTE 0.34 10/3/uL (0.67-4.30); MEAN CORPUSCULAR HEMOGLOB 35.2 pg (26.0-34.0); MEAN CORPUSCULAR VOLUME 113.5 fL (80-100); MEAN PLATELET VOLUME 10.7 fL (9.2-13.0); MONOCYTES 3.9 %; MONOCYTES ABSOLUTE 0.52 10/3/uL (0.21-1.20); NEUTROPHILS 93.3 %; NEUTROPHILS ABSOLUTE 12.32 10/3/uL (2.02-8.40); PLATELET COUNT 92 10/3/uL (150-400); RBC DISTRIBUTION WIDTH 21.6 % (12.0-16.0); WHITE BLOOD CELLS 13.2 10/3/uL (4.5-10.5)
[2017-02-13 17:05] LABS: MANUAL DIFF NO %
[2017-02-13 17:14] LABS: BUN (BLOOD UREA NITROGEN) 36 MG/DL (6-23); CALCIUM, SERUM 7.6 MG/DL (8.5-10.4); CHLORIDE, SERUM 112 MMOL/L (96-112); CO2 (CARBON DIOXIDE) 19 MMOL/L (24-34); CREATININE 2.14 MG/DL (0.70-1.30); GFR AFRICAN AMERICAN 35 ML/MIN (>=60); GFR NON AFRICAN AMERICAN 30 ML/MIN (>=60); GLUCOSE, SERUM 131 MG/DL (60-99); POTASSIUM, SERUM 5.3 MMOL/L (3.5-5.3); SODIUM, SERUM 143 MMOL/L (135-148)
[2017-02-13 17:43] LABS: PLATELET ESTIMATE SLT DEC (ADEQUATE)
[2017-02-13 17:46] LABS: HYPOCHROMIA 1+ (3-10/OIF) (0-2/OIF); POLYCHROMASIA 1+ (2-5/OIF) (0-1/OIF)
[2017-02-13 17:47] LABS: BURR CELLS 1+ (3-10/OIF) (0-2/OIF); TARGET CELLS OCC (1-2/OIF) (0-1/OIF)
[2017-02-13 21:57] LABS: CHLORIDE, SERUM 113 MMOL/L (96-112); CO2 (CARBON DIOXIDE) 18 MMOL/L (24-34); GFR AFRICAN AMERICAN 40 ML/MIN (>=60); GFR NON AFRICAN AMERICAN 35 ML/MIN (>=60); GLUCOSE, SERUM 126 MG/DL (60-99); POTASSIUM, SERUM 5.2 MMOL/L (3.5-5.3); SODIUM, SERUM 140 MMOL/L (135-148)
[2017-02-13 21:58] LABS: BUN (BLOOD UREA NITROGEN) 30 MG/DL (6-23)
[2017-02-13 23:26] LABS: BASOPHILS 0 %; EOSINOPHILS 0 %; HEMATOCRIT 35.7 % (40.0-51.0); IMMATURE GRANULOCYTES 0.2 %; IMMATURE GRANULOCYTES ABSOLUTE 0.03 10/3/uL (0.0-0.11); LYMPHOCYTES 1.8 %; LYMPHOCYTES ABSOLUTE 0.24 10/3/uL (0.67-4.30); MEAN CORPUS HGB CONC 30.8 g/dL (32.0-36.0); MEAN CORPUSCULAR HEMOGLOB 35.5 pg (26.0-34.0); MEAN CORPUSCULAR VOLUME 115.2 fL (80-100); MEAN PLATELET VOLUME 10.7 fL (9.2-13.0); MONOCYTES 2.8 %; MONOCYTES ABSOLUTE 0.37 10/3/uL (0.21-1.20); NEUTROPHILS 95.2 %; NEUTROPHILS ABSOLUTE 12.78 10/3/uL (2.02-8.40); NUCLEATED RED BLOOD CELLS 0.4 /100WBC (0-0); PLATELET COUNT 88 10/3/uL (150-400); RBC DISTRIBUTION WIDTH 21.4 % (12.0-16.0); WHITE BLOOD CELLS 13.4 10/3/uL (4.5-10.5)
[2017-02-13 23:27] LABS: MANUAL DIFF NO %
[2017-02-14 01:08] LABS: ANISOCYTOSIS 1+ (5-10/OIF) (0-5/OIF); PLATELET ESTIMATE ADQ (ADEQUATE); POLYCHROMASIA 1+ (2-5/OIF) (0-1/OIF)
[2017-02-14 03:49] LABS: BASOPHILS 0 %; EOSINOPHILS 0 %; IMMATURE GRANULOCYTES 0.4 %; IMMATURE GRANULOCYTES ABSOLUTE 0.05 10/3/uL (0.0-0.11); LYMPHOCYTES 1.9 %; LYMPHOCYTES ABSOLUTE 0.27 10/3/uL (0.67-4.30); MANUAL DIFF NO %; MEAN CORPUS HGB CONC 30.6 g/dL (32.0-36.0); MEAN CORPUSCULAR HEMOGLOB 35.4 pg (26.0-34.0); MEAN CORPUSCULAR VOLUME 115.8 fL (80-100); MEAN PLATELET VOLUME 9.9 fL (9.2-13.0); MONOCYTES 3.5 %; MONOCYTES ABSOLUTE 0.49 10/3/uL (0.21-1.20); NEUTROPHILS 94.2 %; NEUTROPHILS ABSOLUTE 13.04 10/3/uL (2.02-8.40); PLATELET COUNT 77 10/3/uL (150-400); RBC DISTRIBUTION WIDTH 21.4 % (12.0-16.0); RED CELL COUNT 3.11 10/6/uL (4.7-6.1); WHITE BLOOD CELLS 13.9 10/3/uL (4.5-10.5)
[2017-02-14 04:05] LABS: ALKALINE PHOSPHATASE 56 U/L (45-117); CHLORIDE, SERUM 112 MMOL/L (96-112); CO2 (CARBON DIOXIDE) 18 MMOL/L (24-34); CREATININE 1.69 MG/DL (0.70-1.30); GFR AFRICAN AMERICAN 47 ML/MIN (>=60); GFR NON AFRICAN AMERICAN 40 ML/MIN (>=60); GLUCOSE, SERUM 124 MG/DL (60-99); PHOSPHORUS, SERUM 3.2 MG/DL (2.5-4.5); POTASSIUM, SERUM 5.4 MMOL/L (3.5-5.3); SGOT(AST) 87 U/L (5-40); SGPT(ALT) 53 U/L (5-65); SODIUM, SERUM 141 MMOL/L (135-148); TOTAL PROTEIN 5.8 G/DL (6.0-8.5)
[2017-02-14 04:06] LABS: A/G RATIO 1.1 (0.7-1.9); BUN (BLOOD UREA NITROGEN) 25 MG/DL (6-23); GLOBULIN 2.8 G/DL (2.5-4.1); TOTAL BILIRUBIN 4.2 MG/DL (0-1.2)
[2017-02-14 04:23] LABS: ANISOCYTOSIS 1+ (5-10/OIF) (0-5/OIF); PLATELET ESTIMATE DEC (ADEQUATE); POLYCHROMASIA 1+ (2-5/OIF) (0-1/OIF)
[2017-02-14 04:47] LABS: BE (BASE EXCESS) -11.5 MEQ/L (0 +/- 2.5); CARBOXYHEMOGLOBIN 0.8 % (0-3); HCO3 (ACTUAL BICARBONATE) 16.3 MEQ/L (23-27); HEMOBLOGIN CONTENT 11.9 G/DL (14-18); INSTRUMENT SERIAL # 8083; METHEMOGLOBIN 0.1 % (0-3); MODE PCV; O2 CONTENT 16.5 VOL% (18-24); OPERATOR ID 33214; PCO2 (CO2 TENSION) 44 MMHG (35-45); PO2 (O2 TENSION) 135 MMHG (79-93); SAMPLE Arterial; pH 7.19 (7.37-7.43)
[2017-02-14 08:24] LABS: BE (BASE EXCESS) -10.4 MEQ/L (0 +/- 2.5); HCO3 (ACTUAL BICARBONATE) 15.3 MEQ/L (23-27); INSTRUMENT SERIAL # 8083; PCO2 (CO2 TENSION) 33 MMHG (35-45); PO2 (O2 TENSION) 178 MMHG (79-93); pH 7.28 (7.37-7.43)
[2017-02-14 08:25] LABS: CARBOXYHEMOGLOBIN 0.9 % (0-3); HEMOBLOGIN CONTENT 11.5 G/DL (14-18); METHEMOGLOBIN 0.2 % (0-3); MODE PCV 32; O2 CONTENT 16.3 VOL% (18-24); OPERATOR ID 18801; SAMPLE Arterial
[2017-02-14 12:56] LABS: ALBUMIN 2.8 G/DL (3.5-5.0); BUN (BLOOD UREA NITROGEN) 21 MG/DL (6-23); CALCIUM, SERUM 6.6 MG/DL (8.5-10.4); CHLORIDE, SERUM 112 MMOL/L (96-112); CO2 (CARBON DIOXIDE) 21 MMOL/L (24-34); CREATININE 1.46 MG/DL (0.70-1.30); GFR AFRICAN AMERICAN 56 ML/MIN (>=60); GFR NON AFRICAN AMERICAN 48 ML/MIN (>=60); GLUCOSE, SERUM 141 MG/DL (60-99); PHOSPHORUS, SERUM 2.7 MG/DL (2.5-4.5); SODIUM, SERUM 144 MMOL/L (135-148)
[2017-02-14 17:50] LABS: BASOPHILS 0 %; EOSINOPHILS 0 %; HEMOGLOBIN 8.8 g/dL (13.6-17.8); IMMATURE GRANULOCYTES 0.2 %; IMMATURE GRANULOCYTES ABSOLUTE 0.02 10/3/uL (0.0-0.11); LYMPHOCYTES 2.9 %; LYMPHOCYTES ABSOLUTE 0.24 10/3/uL (0.67-4.30); MEAN CORPUS HGB CONC 31.9 g/dL (32.0-36.0); MEAN CORPUSCULAR HEMOGLOB 36.1 pg (26.0-34.0); MEAN CORPUSCULAR VOLUME 113.1 fL (80-100); MEAN PLATELET VOLUME 9.8 fL (9.2-13.0); MONOCYTES 1.2 %; NEUTROPHILS 95.7 %; NEUTROPHILS ABSOLUTE 8.03 10/3/uL (2.02-8.40); RBC DISTRIBUTION WIDTH 20.7 % (12.0-16.0); WHITE BLOOD CELLS 8.4 10/3/uL (4.5-10.5)
[2017-02-14 17:54] LABS: HEMATOCRIT 27.6 % (40.0-51.0); RED CELL COUNT 2.44 10/6/uL (4.7-6.1)
[2017-02-14 17:55] LABS: PLATELET COUNT 29 10/3/uL (150-400)
[2017-02-14 18:03] LABS: MANUAL DIFF NO %
[2017-02-14 18:11] LABS: BUN (BLOOD UREA NITROGEN) 17 MG/DL (6-23); CALCIUM, SERUM 6.2 MG/DL (8.5-10.4); CHLORIDE, SERUM 111 MMOL/L (96-112); CO2 (CARBON DIOXIDE) 21 MMOL/L (24-34); CREATININE 1.13 MG/DL (0.70-1.30); GFR AFRICAN AMERICAN 76 ML/MIN (>=60); GFR NON AFRICAN AMERICAN 65 ML/MIN (>=60); GLUCOSE, SERUM 147 MG/DL (60-99); PHOSPHORUS, SERUM 1.5 MG/DL (2.5-4.5); POTASSIUM, SERUM 4.5 MMOL/L (3.5-5.3); SODIUM, SERUM 142 MMOL/L (135-148)
[2017-02-14 18:20] LABS: ANISOCYTOSIS 1+ (5-10/OIF) (0-5/OIF); ELLIPTOCYTES 1+ (3-10/OIF) (0-2/OIF); POLYCHROMASIA 1+ (2-5/OIF) (0-1/OIF)
[2017-02-14 18:21] LABS: BASOPHILIC STIPPLING 1+ (2-5/OIF) (0-1/OIF)
[2017-02-14 18:24] LABS: MACROCYTES 1+ (5-10/OIF) (0-5/OIF)
[2017-02-15 03:37] LABS: BASOPHILS 0 %; EOSINOPHILS 0 %; HEMATOCRIT 29.9 % (40.0-51.0); HEMOGLOBIN 9.6 g/dL (13.6-17.8); IMMATURE GRANULOCYTES 0.5 %; IMMATURE GRANULOCYTES ABSOLUTE 0.06 10/3/uL (0.0-0.11); LYMPHOCYTES 2.2 %; LYMPHOCYTES ABSOLUTE 0.25 10/3/uL (0.67-4.30); MEAN CORPUS HGB CONC 32.1 g/dL (32.0-36.0); MEAN CORPUSCULAR HEMOGLOB 36.1 pg (26.0-34.0); MEAN CORPUSCULAR VOLUME 112.4 fL (80-100); MEAN PLATELET VOLUME 11.3 fL (9.2-13.0); MONOCYTES 2.2 %; MONOCYTES ABSOLUTE 0.25 10/3/uL (0.21-1.20); NEUTROPHILS 95.1 %; NEUTROPHILS ABSOLUTE 10.65 10/3/uL (2.02-8.40); PLATELET COUNT 33 10/3/uL (150-400); RBC DISTRIBUTION WIDTH 20.7 % (12.0-16.0); RED CELL COUNT 2.66 10/6/uL (4.7-6.1); WHITE BLOOD CELLS 11.2 10/3/uL (4.5-10.5)
[2017-02-15 03:38] LABS: MANUAL DIFF NO %
[2017-02-15 03:49] LABS: BE (BASE EXCESS) -2.7 MEQ/L (0 +/- 2.5); CARBOXYHEMOGLOBIN 1.1 % (0-3); HCO3 (ACTUAL BICARBONATE) 21.4 MEQ/L (23-27); HEMOBLOGIN CONTENT 9.8 G/DL (14-18); INSTRUMENT SERIAL # 8083; METHEMOGLOBIN 0.1 % (0-3); MODE PCV; PCO2 (CO2 TENSION) 34 MMHG (35-45); PO2 (O2 TENSION) 202 MMHG (79-93); SAMPLE Arterial; pH 7.41 (7.37-7.43)
[2017-02-15 03:58] LABS: ALBUMIN 2.5 G/DL (3.5-5.0); CHLORIDE, SERUM 109 MMOL/L (96-112); CO2 (CARBON DIOXIDE) 25 MMOL/L (24-34); CREATININE 0.91 MG/DL (0.70-1.30); GFR AFRICAN AMERICAN 99 ML/MIN (>=60); GFR NON AFRICAN AMERICAN 85 ML/MIN (>=60); GLUCOSE, SERUM 143 MG/DL (60-99); SODIUM, SERUM 141 MMOL/L (135-148)
[2017-02-15 03:59] LABS: BUN (BLOOD UREA NITROGEN) 11 MG/DL (6-23); CALCIUM, SERUM 5.8 MG/DL (8.5-10.4); PHOSPHORUS, SERUM 2.1 MG/DL (2.5-4.5); POTASSIUM, SERUM 4.2 MMOL/L (3.5-5.3)
[2017-02-15 04:10] LABS: TEARDROP SHAPED RBCS OCC (0-2/OIF)
[2017-02-15 04:31] LABS: PROCALCITONIN 0.37 ng/mL (<0.5)
[2017-02-15 13:40] LABS: HEPARIN-INDUCED PLATELET AB NEGATIVE (NEGATIVE); HIT PATIENT O.D. 0.022 OD (0.000-0.299)
[2017-02-15 14:35] LABS: BASOPHILS 0 %; EOSINOPHILS 0 %; HEMATOCRIT 29.8 % (40.0-51.0); HEMOGLOBIN 9.7 g/dL (13.6-17.8); IMMATURE GRANULOCYTES 0.6 %; IMMATURE GRANULOCYTES ABSOLUTE 0.08 10/3/uL (0.0-0.11); LYMPHOCYTES 1.5 %; LYMPHOCYTES ABSOLUTE 0.21 10/3/uL (0.67-4.30); MEAN CORPUS HGB CONC 32.6 g/dL (32.0-36.0); MEAN CORPUSCULAR HEMOGLOB 36.2 pg (26.0-34.0); MEAN CORPUSCULAR VOLUME 111.2 fL (80-100); MEAN PLATELET VOLUME 11.9 fL (9.2-13.0); MONOCYTES 2.5 %; MONOCYTES ABSOLUTE 0.34 10/3/uL (0.21-1.20); NEUTROPHILS 95.4 %; NEUTROPHILS ABSOLUTE 13.13 10/3/uL (2.02-8.40); NUCLEATED RED BLOOD CELLS 1.8 /100WBC (0-0); PLATELET COUNT 41 10/3/uL (150-400); RBC DISTRIBUTION WIDTH 20.6 % (12.0-16.0); RED CELL COUNT 2.68 10/6/uL (4.7-6.1); WHITE BLOOD CELLS 13.8 10/3/uL (4.5-10.5)
[2017-02-15 14:47] LABS: ANISOCYTOSIS 1+ (5-10/OIF) (0-5/OIF)
[2017-02-15 14:48] LABS: BUN (BLOOD UREA NITROGEN) 10 MG/DL (6-23); CHLORIDE, SERUM 108 MMOL/L (96-112); CO2 (CARBON DIOXIDE) 25 MMOL/L (24-34); CREATININE 0.84 MG/DL (0.70-1.30); GFR AFRICAN AMERICAN 103 ML/MIN (>=60); GFR NON AFRICAN AMERICAN 89 ML/MIN (>=60); GLUCOSE, SERUM 144 MG/DL (60-99); PHOSPHORUS, SERUM 1.9 MG/DL (2.5-4.5); SODIUM, SERUM 142 MMOL/L (135-148)
[2017-02-15 14:49] LABS: CALCIUM, SERUM 7.3 MG/DL (8.5-10.4); POTASSIUM, SERUM 4.3 MMOL/L (3.5-5.3)
[2017-02-15 17:28] LABS: PREALBUMIN 9.9 MG/DL (17.0-43.0)
[2017-02-15 21:02] LABS: MANUAL DIFF NO %
[2017-02-15 22:18] LABS: ANCA <1:20 (()); MYELOPEROXIDASE ANTIBODY <0.2 AI (<1.0); PROTEINASE 3 ANTIBODY <0.2 AI (<1.0)
[2017-02-16 03:57] LABS: BASOPHILS 0 %; EOSINOPHILS 0 %; HEMATOCRIT 30.7 % (40.0-51.0); IMMATURE GRANULOCYTES 0.9 %; IMMATURE GRANULOCYTES ABSOLUTE 0.11 10/3/uL (0.0-0.11); LYMPHOCYTES 0.8 %; MEAN CORPUS HGB CONC 32.6 g/dL (32.0-36.0); MEAN CORPUSCULAR HEMOGLOB 36.1 pg (26.0-34.0); MEAN CORPUSCULAR VOLUME 110.8 fL (80-100); MONOCYTES 2.2 %; MONOCYTES ABSOLUTE 0.28 10/3/uL (0.21-1.20); NEUTROPHILS 96.1 %; NEUTROPHILS ABSOLUTE 12.24 10/3/uL (2.02-8.40); NUCLEATED RED BLOOD CELLS 0.5 /100WBC (0-0); RBC DISTRIBUTION WIDTH 20.3 % (12.0-16.0); RED CELL COUNT 2.77 10/6/uL (4.7-6.1); WHITE BLOOD CELLS 12.7 10/3/uL (4.5-10.5)
[2017-02-16 03:59] LABS: MANUAL DIFF NO %; PLATELET COUNT 28 10/3/uL (150-400)
[2017-02-16 04:02] LABS: BUN (BLOOD UREA NITROGEN) 9 MG/DL (6-23); CALCIUM, SERUM 8.9 MG/DL (8.5-10.4); CHLORIDE, SERUM 107 MMOL/L (96-112); CO2 (CARBON DIOXIDE) 25 MMOL/L (24-34); CREATININE 0.84 MG/DL (0.70-1.30); GFR AFRICAN AMERICAN 103 ML/MIN (>=60); GFR NON AFRICAN AMERICAN 89 ML/MIN (>=60); GLUCOSE, SERUM 136 MG/DL (60-99); PHOSPHORUS, SERUM 2.4 MG/DL (2.5-4.5); POTASSIUM, SERUM 4.1 MMOL/L (3.5-5.3); SODIUM, SERUM 137 MMOL/L (135-148)
[2017-02-16 04:14] LABS: ANISOCYTOSIS 1+ (5-10/OIF) (0-5/OIF)
[2017-02-16 04:45] LABS: BE (BASE EXCESS) -1.2 MEQ/L (0 +/- 2.5); CARBOXYHEMOGLOBIN 1.2 % (0-3); HCO3 (ACTUAL BICARBONATE) 23.2 MEQ/L (23-27); HEMOBLOGIN CONTENT 10.2 G/DL (14-18); INSTRUMENT SERIAL # 8083; METHEMOGLOBIN 0.2 % (0-3); MODE CMV; O2 CONTENT 14.4 VOL% (18-24); OPERATOR ID 16469; PCO2 (CO2 TENSION) 37 MMHG (35-45); PO2 (O2 TENSION) 155 MMHG (79-93); SAMPLE Arterial; pH 7.41 (7.37-7.43)
[2017-02-16 14:38] LABS: BASOPHILS 0 %; EOSINOPHILS 0 %; HEMATOCRIT 29.5 % (40.0-51.0); HEMOGLOBIN 9.5 g/dL (13.6-17.8); IMMATURE GRANULOCYTES 0.7 %; IMMATURE GRANULOCYTES ABSOLUTE 0.07 10/3/uL (0.0-0.11); LYMPHOCYTES ABSOLUTE 0.21 10/3/uL (0.67-4.30); MEAN CORPUS HGB CONC 32.2 g/dL (32.0-36.0); MEAN CORPUSCULAR HEMOGLOB 35.6 pg (26.0-34.0); MEAN CORPUSCULAR VOLUME 110.5 fL (80-100); MONOCYTES 2.4 %; MONOCYTES ABSOLUTE 0.25 10/3/uL (0.21-1.20); NEUTROPHILS 94.9 %; NEUTROPHILS ABSOLUTE 9.92 10/3/uL (2.02-8.40); RBC DISTRIBUTION WIDTH 20.3 % (12.0-16.0); RED CELL COUNT 2.67 10/6/uL (4.7-6.1); WHITE BLOOD CELLS 10.5 10/3/uL (4.5-10.5)
[2017-02-16 14:39] LABS: PLATELET COUNT 25 10/3/uL (150-400)
[2017-02-16 14:40] LABS: MANUAL DIFF NO %
[2017-02-16 14:49] LABS: BUN (BLOOD UREA NITROGEN) 10 MG/DL (6-23); CALCIUM, SERUM 9.3 MG/DL (8.5-10.4); CHLORIDE, SERUM 108 MMOL/L (96-112); CO2 (CARBON DIOXIDE) 26 MMOL/L (24-34); CREATININE 0.74 MG/DL (0.70-1.30); GFR AFRICAN AMERICAN 108 ML/MIN (>=60); GFR NON AFRICAN AMERICAN 93 ML/MIN (>=60); GLUCOSE, SERUM 147 MG/DL (60-99); PHOSPHORUS, SERUM 2.6 MG/DL (2.5-4.5); POTASSIUM, SERUM 4.3 MMOL/L (3.5-5.3); SODIUM, SERUM 143 MMOL/L (135-148)
[2017-02-16 15:08] LABS: ANISOCYTOSIS 1+ (5-10/OIF) (0-5/OIF); POLYCHROMASIA 1+ (2-5/OIF) (0-1/OIF)
[2017-02-17 02:47] LABS: BASOPHILS 0 %; EOSINOPHILS 0 %; HEMATOCRIT 32.7 % (40.0-51.0); HEMOGLOBIN 10.5 g/dL (13.6-17.8); IMMATURE GRANULOCYTES 1.1 %; IMMATURE GRANULOCYTES ABSOLUTE 0.14 10/3/uL (0.0-0.11); LYMPHOCYTES 2.5 %; MANUAL DIFF NO %; MEAN CORPUS HGB CONC 32.1 g/dL (32.0-36.0); MEAN CORPUSCULAR HEMOGLOB 35.8 pg (26.0-34.0); MEAN CORPUSCULAR VOLUME 111.6 fL (80-100); MEAN PLATELET VOLUME 12.3 fL (9.2-13.0); MONOCYTES 1.6 %; MONOCYTES ABSOLUTE 0.19 10/3/uL (0.21-1.20); NEUTROPHILS 94.8 %; NEUTROPHILS ABSOLUTE 11.59 10/3/uL (2.02-8.40); PLATELET COUNT 29 10/3/uL (150-400); RBC DISTRIBUTION WIDTH 20.2 % (12.0-16.0); RED CELL COUNT 2.93 10/6/uL (4.7-6.1); WHITE BLOOD CELLS 12.2 10/3/uL (4.5-10.5)
[2017-02-17 02:59] LABS: BUN (BLOOD UREA NITROGEN) 10 MG/DL (6-23); CALCIUM, SERUM 9.6 MG/DL (8.5-10.4); CHLORIDE, SERUM 107 MMOL/L (96-112); CO2 (CARBON DIOXIDE) 26 MMOL/L (24-34); CREATININE 0.81 MG/DL (0.70-1.30); GFR AFRICAN AMERICAN 104 ML/MIN (>=60); GFR NON AFRICAN AMERICAN 90 ML/MIN (>=60); GLUCOSE, SERUM 145 MG/DL (60-99); PHOSPHORUS, SERUM 2.5 MG/DL (2.5-4.5); POTASSIUM, SERUM 4.1 MMOL/L (3.5-5.3); SODIUM, SERUM 138 MMOL/L (135-148)
[2017-02-17 03:03] LABS: ANISOCYTOSIS 1+ (5-10/OIF) (0-5/OIF)
[2017-02-17 03:10] LABS: DEPAKENE (VALPROIC ACID) 54.8 MCG/ML (50.0-100.0)
[2017-02-17 03:46] LABS: BE (BASE EXCESS) -3.6 MEQ/L (0 +/- 2.5); CARBOXYHEMOGLOBIN 1.5 % (0-3); HCO3 (ACTUAL BICARBONATE) 22.3 MEQ/L (23-27); HEMOBLOGIN CONTENT 10.9 G/DL (14-18); INSTRUMENT SERIAL # 8083; METHEMOGLOBIN 0.2 % (0-3); MODE PCV; O2 CONTENT 15.1 VOL% (18-24); OPERATOR ID 17370; PCO2 (CO2 TENSION) 43 MMHG (35-45); PO2 (O2 TENSION) 137 MMHG (79-93); SAMPLE Arterial; pH 7.33 (7.37-7.43)
[2017-02-17 14:13] LABS: BASOPHILS 0 %; EOSINOPHILS 0 %; HEMATOCRIT 33.1 % (40.0-51.0); HEMOGLOBIN 10.6 g/dL (13.6-17.8); IMMATURE GRANULOCYTES 1.4 %; IMMATURE GRANULOCYTES ABSOLUTE 0.14 10/3/uL (0.0-0.11); LYMPHOCYTES 2.5 %; LYMPHOCYTES ABSOLUTE 0.26 10/3/uL (0.67-4.30); MEAN CORPUSCULAR HEMOGLOB 36.1 pg (26.0-34.0); MEAN CORPUSCULAR VOLUME 112.6 fL (80-100); MEAN PLATELET VOLUME 11.7 fL (9.2-13.0); MONOCYTES 3.7 %; MONOCYTES ABSOLUTE 0.38 10/3/uL (0.21-1.20); NEUTROPHILS 92.4 %; NEUTROPHILS ABSOLUTE 9.46 10/3/uL (2.02-8.40); RBC DISTRIBUTION WIDTH 20.4 % (12.0-16.0); RED CELL COUNT 2.94 10/6/uL (4.7-6.1); WHITE BLOOD CELLS 10.2 10/3/uL (4.5-10.5)
[2017-02-17 14:15] LABS: MANUAL DIFF NO %; PLATELET COUNT 22 10/3/uL (150-400)
[2017-02-17 14:23] LABS: BUN (BLOOD UREA NITROGEN) 12 MG/DL (6-23); CALCIUM, SERUM 8.8 MG/DL (8.5-10.4); CHLORIDE, SERUM 108 MMOL/L (96-112); CO2 (CARBON DIOXIDE) 24 MMOL/L (24-34); CREATININE 0.79 MG/DL (0.70-1.30); GFR AFRICAN AMERICAN 105 ML/MIN (>=60); GFR NON AFRICAN AMERICAN 91 ML/MIN (>=60); GLUCOSE, SERUM 161 MG/DL (60-99); PHOSPHORUS, SERUM 2.3 MG/DL (2.5-4.5); POTASSIUM, SERUM 4.6 MMOL/L (3.5-5.3); SODIUM, SERUM 139 MMOL/L (135-148)
[2017-02-17 14:32] LABS: ANISOCYTOSIS 1+ (5-10/OIF) (0-5/OIF)
[2017-02-18 02:16] LABS: CARBOXYHEMOGLOBIN 0.9 % (0-3); HCO3 (ACTUAL BICARBONATE) 20.5 MEQ/L (23-27); HEMOBLOGIN CONTENT 10.1 G/DL (14-18); INSTRUMENT SERIAL # 8083; METHEMOGLOBIN 0.2 % (0-3); O2 CONTENT 13.9 VOL% (18-24); PCO2 (CO2 TENSION) 31 MMHG (35-45); PO2 (O2 TENSION) 98 MMHG (79-93); SAMPLE Arterial; pH 7.44 (7.37-7.43)
[2017-02-18 02:17] LABS: MODE PCV
[2017-02-18 04:32] LABS: HEMATOCRIT 30.2 % (40.0-51.0); HEMOGLOBIN 9.7 g/dL (13.6-17.8); MEAN CORPUS HGB CONC 32.1 g/dL (32.0-36.0); MEAN CORPUSCULAR HEMOGLOB 35.9 pg (26.0-34.0); MEAN CORPUSCULAR VOLUME 111.9 fL (80-100); MEAN PLATELET VOLUME 11.4 fL (9.2-13.0); NUCLEATED RED BLOOD CELLS 1.4 /100WBC (0-0); PLATELET COUNT 32 10/3/uL (150-400); RBC DISTRIBUTION WIDTH 20.6 % (12.0-16.0); WHITE BLOOD CELLS 10.5 10/3/uL (4.5-10.5)
[2017-02-18 04:33] LABS: MANUAL DIFF YES %
[2017-02-18 04:56] LABS: BAND NEUTROPHILS 26 %; IMMATURE GRANS ABSOLUTE (CALC) 0.21 10/3/uL (0.0-0.11); LYMPHOCYTES 4 %; LYMPHOCYTES ABSOLUTE (CALC) 0.42 10/3/uL (0.67-4.30); METAMYELOCYTES 2 %; MONOCYTES 2 %; MONOCYTES ABSOLUTE (CALC) 0.21 10/3/uL (0.21-1.20); NEUTROPHILS ABSOLUTE (CALC) 9.66 10/3/uL (2.02-8.40); SEGMENTED NEUTROPHIL (0) 66 %; TOTAL NUCLEATED CELLS 100
[2017-02-18 04:57] LABS: TEARDROP SHAPED RBCS OCC (0-2/OIF)
[2017-02-18 04:59] LABS: BUN (BLOOD UREA NITROGEN) 14 MG/DL (6-23); CHLORIDE, SERUM 108 MMOL/L (96-112); CO2 (CARBON DIOXIDE) 25 MMOL/L (24-34); GFR AFRICAN AMERICAN 100 ML/MIN (>=60); GFR NON AFRICAN AMERICAN 86 ML/MIN (>=60); POTASSIUM, SERUM 4.4 MMOL/L (3.5-5.3); SODIUM, SERUM 142 MMOL/L (135-148)
[2017-02-18 05:04] LABS: CALCIUM, SERUM 7.6 MG/DL (8.5-10.4); GLUCOSE, SERUM 120 MG/DL (60-99); PHOSPHORUS, SERUM 1.3 MG/DL (2.5-4.5)
[2017-02-18 15:07] LABS: HEMOGLOBIN 9.2 g/dL (13.6-17.8); MEAN CORPUS HGB CONC 31.7 g/dL (32.0-36.0); MEAN CORPUSCULAR HEMOGLOB 35.2 pg (26.0-34.0); MEAN CORPUSCULAR VOLUME 111.1 fL (80-100); MEAN PLATELET VOLUME 11.9 fL (9.2-13.0); NUCLEATED RED BLOOD CELLS 0.9 /100WBC (0-0); RBC DISTRIBUTION WIDTH 20.9 % (12.0-16.0); RED CELL COUNT 2.61 10/6/uL (4.7-6.1); WHITE BLOOD CELLS 12.5 10/3/uL (4.5-10.5)
[2017-02-18 15:09] LABS: MANUAL DIFF YES %; PLATELET COUNT 28 10/3/uL (150-400)
[2017-02-18 15:14] LABS: BUN (BLOOD UREA NITROGEN) 14 MG/DL (6-23); CHLORIDE, SERUM 108 MMOL/L (96-112); CO2 (CARBON DIOXIDE) 24 MMOL/L (24-34); CREATININE 0.88 MG/DL (0.70-1.30); GFR AFRICAN AMERICAN 101 ML/MIN (>=60); GFR NON AFRICAN AMERICAN 87 ML/MIN (>=60); POTASSIUM, SERUM 3.9 MMOL/L (3.5-5.3); SODIUM, SERUM 142 MMOL/L (135-148)
[2017-02-18 15:16] LABS: CALCIUM, SERUM 6.8 MG/DL (8.5-10.4); GLUCOSE, SERUM 158 MG/DL (60-99); PHOSPHORUS, SERUM 3.2 MG/DL (2.5-4.5)
[2017-02-18 15:24] LABS: BAND NEUTROPHILS 35 %; LYMPHOCYTES 2 %; LYMPHOCYTES ABSOLUTE (CALC) 0.25 10/3/uL (0.67-4.30); METAMYELOCYTES 3 %; MONOCYTES 8 %; NEUTROPHILS ABSOLUTE (CALC) 10.75 10/3/uL (2.02-8.40); PROMYELOCYTES 1 % (0); SEGMENTED NEUTROPHIL (0) 51 %; TOTAL NUCLEATED CELLS 100
[2017-02-18 15:25] LABS: ANISOCYTOSIS 1+ (5-10/OIF) (0-5/OIF); HYPOCHROMIA 1+ (3-10/OIF) (0-2/OIF)
[2017-02-19 02:50] LABS: HEMATOCRIT 27.8 % (40.0-51.0); HEMOGLOBIN 9.1 g/dL (13.6-17.8); MEAN CORPUS HGB CONC 32.7 g/dL (32.0-36.0); MEAN CORPUSCULAR VOLUME 109.9 fL (80-100); MEAN PLATELET VOLUME 11.9 fL (9.2-13.0); NUCLEATED RED BLOOD CELLS 0.2 /100WBC (0-0); RBC DISTRIBUTION WIDTH 20.7 % (12.0-16.0); RED CELL COUNT 2.53 10/6/uL (4.7-6.1); WHITE BLOOD CELLS 12.1 10/3/uL (4.5-10.5)
[2017-02-19 02:51] LABS: MANUAL DIFF YES %; PLATELET COUNT 24 10/3/uL (150-400)
[2017-02-19 03:15] LABS: BUN (BLOOD UREA NITROGEN) 17 MG/DL (6-23); CALCIUM, SERUM 6.6 MG/DL (8.5-10.4); CHLORIDE, SERUM 106 MMOL/L (96-112); CO2 (CARBON DIOXIDE) 25 MMOL/L (24-34); CREATININE 0.87 MG/DL (0.70-1.30); GFR AFRICAN AMERICAN 101 ML/MIN (>=60); GFR NON AFRICAN AMERICAN 87 ML/MIN (>=60); GLUCOSE, SERUM 185 MG/DL (60-99); POTASSIUM, SERUM 3.9 MMOL/L (3.5-5.3); SODIUM, SERUM 141 MMOL/L (135-148)
[2017-02-19 03:37] LABS: ANISOCYTOSIS 1+ (5-10/OIF) (0-5/OIF); BAND NEUTROPHILS 36 %; IMMATURE GRANS ABSOLUTE (CALC) 0.24 10/3/uL (0.0-0.11); LYMPHOCYTES 1 %; LYMPHOCYTES ABSOLUTE (CALC) 0.12 10/3/uL (0.67-4.30); METAMYELOCYTES 2 %; MONOCYTES 3 %; MONOCYTES ABSOLUTE (CALC) 0.36 10/3/uL (0.21-1.20); NEUTROPHILS ABSOLUTE (CALC) 11.37 10/3/uL (2.02-8.40); SEGMENTED NEUTROPHIL (0) 58 %; TOTAL NUCLEATED CELLS 100
[2017-02-19 04:11] LABS: CARBOXYHEMOGLOBIN 1.2 % (0-3); HEMOBLOGIN CONTENT 8.8 G/DL (14-18); INSTRUMENT SERIAL # 8083; METHEMOGLOBIN 0.2 % (0-3); O2 CONTENT 12.6 VOL% (18-24); OPERATOR ID 13415; PCO2 (CO2 TENSION) 33 MMHG (35-45); PO2 (O2 TENSION) 197 MMHG (79-93); SAMPLE Arterial; pH 7.42 (7.37-7.43)
[2017-02-19 04:12] LABS: MODE PCV
[2017-02-19 14:48] LABS: HEMATOCRIT 27.1 % (40.0-51.0); HEMOGLOBIN 8.9 g/dL (13.6-17.8); MANUAL DIFF YES %; MEAN CORPUS HGB CONC 32.8 g/dL (32.0-36.0); MEAN CORPUSCULAR HEMOGLOB 35.9 pg (26.0-34.0); MEAN CORPUSCULAR VOLUME 109.3 fL (80-100); MEAN PLATELET VOLUME 10.6 fL (9.2-13.0); PLATELET COUNT 20 10/3/uL (150-400); RBC DISTRIBUTION WIDTH 20.7 % (12.0-16.0); RED CELL COUNT 2.48 10/6/uL (4.7-6.1); WHITE BLOOD CELLS 11.6 10/3/uL (4.5-10.5)
[2017-02-19 14:59] LABS: BUN (BLOOD UREA NITROGEN) 19 MG/DL (6-23); CALCIUM, SERUM 6.4 MG/DL (8.5-10.4); CHLORIDE, SERUM 107 MMOL/L (96-112); CO2 (CARBON DIOXIDE) 24 MMOL/L (24-34); CREATININE 0.78 MG/DL (0.70-1.30); GFR AFRICAN AMERICAN 106 ML/MIN (>=60); GFR NON AFRICAN AMERICAN 91 ML/MIN (>=60); GLUCOSE, SERUM 203 MG/DL (60-99); POTASSIUM, SERUM 3.8 MMOL/L (3.5-5.3); SODIUM, SERUM 141 MMOL/L (135-148)
[2017-02-19 15:37] LABS: ANISOCYTOSIS 1+ (5-10/OIF) (0-5/OIF); BAND NEUTROPHILS 29 %; IMMATURE GRANS ABSOLUTE (CALC) 0.12 10/3/uL (0.0-0.11); LYMPHOCYTES 1 %; LYMPHOCYTES ABSOLUTE (CALC) 0.12 10/3/uL (0.67-4.30); METAMYELOCYTES 1 %; MONOCYTES 7 %; MONOCYTES ABSOLUTE (CALC) 0.81 10/3/uL (0.21-1.20); NEUTROPHILS ABSOLUTE (CALC) 10.56 10/3/uL (2.02-8.40); SEGMENTED NEUTROPHIL (0) 62 %; TOTAL NUCLEATED CELLS 100
[2017-02-19 15:38] LABS: HYPOCHROMIA 1+ (3-10/OIF) (0-2/OIF)
[2017-02-19 17:21] LABS: BE (BASE EXCESS) -1.8 MEQ/L (0 +/- 2.5); CARBOXYHEMOGLOBIN 1.1 % (0-3); HCO3 (ACTUAL BICARBONATE) 23.3 MEQ/L (23-27); HEMOBLOGIN CONTENT 9.7 G/DL (14-18); INSTRUMENT SERIAL # 8083; METHEMOGLOBIN 0.1 % (0-3); MODE CMV; O2 CONTENT 13.7 VOL% (18-24); OPERATOR ID 35188; PCO2 (CO2 TENSION) 41 MMHG (35-45); PO2 (O2 TENSION) 158 MMHG (79-93); SAMPLE Arterial; TIDAL VOLUME 550 ML; pH 7.37 (7.37-7.43)
[2017-02-20 03:49] LABS: BASOPHILS 0.2 %; BASOPHILS ABSOLUTE 0.02 10/3/uL (0.0-0.16); EOSINOPHILS 0 %; HEMATOCRIT 28.1 % (40.0-51.0); HEMOGLOBIN 8.9 g/dL (13.6-17.8); IMMATURE GRANULOCYTES 1.1 %; IMMATURE GRANULOCYTES ABSOLUTE 0.14 10/3/uL (0.0-0.11); LYMPHOCYTES 2.8 %; LYMPHOCYTES ABSOLUTE 0.34 10/3/uL (0.67-4.30); MEAN CORPUS HGB CONC 31.7 g/dL (32.0-36.0); MEAN CORPUSCULAR HEMOGLOB 35.2 pg (26.0-34.0); MEAN CORPUSCULAR VOLUME 111.1 fL (80-100); MEAN PLATELET VOLUME 12.1 fL (9.2-13.0); MONOCYTES ABSOLUTE 1.24 10/3/uL (0.21-1.20); NEUTROPHILS 85.9 %; NEUTROPHILS ABSOLUTE 10.62 10/3/uL (2.02-8.40); RBC DISTRIBUTION WIDTH 20.4 % (12.0-16.0); RED CELL COUNT 2.53 10/6/uL (4.7-6.1); WHITE BLOOD CELLS 12.4 10/3/uL (4.5-10.5)
[2017-02-20 03:50] LABS: MANUAL DIFF NO %; PLATELET COUNT 31 10/3/uL (150-400)
[2017-02-20 04:04] LABS: CHLORIDE, SERUM 106 MMOL/L (96-112); CO2 (CARBON DIOXIDE) 27 MMOL/L (24-34); CREATININE 1.04 MG/DL (0.70-1.30); GFR AFRICAN AMERICAN 84 ML/MIN (>=60); GFR NON AFRICAN AMERICAN 72 ML/MIN (>=60); GLUCOSE, SERUM 167 MG/DL (60-99); PHOSPHORUS, SERUM 3.7 MG/DL (2.5-4.5); POTASSIUM, SERUM 4.3 MMOL/L (3.5-5.3); SODIUM, SERUM 140 MMOL/L (135-148)
[2017-02-20 04:05] LABS: BUN (BLOOD UREA NITROGEN) 25 MG/DL (6-23); CALCIUM, SERUM 6.7 MG/DL (8.5-10.4)
[2017-02-20 04:07] LABS: ANISOCYTOSIS 1+ (5-10/OIF) (0-5/OIF); POLYCHROMASIA 1+ (2-5/OIF) (0-1/OIF)
[2017-02-21 01:56] LABS: MEAN CORPUS HGB CONC 32.1 g/dL (32.0-36.0); MEAN CORPUSCULAR HEMOGLOB 35.2 pg (26.0-34.0); MEAN CORPUSCULAR VOLUME 109.7 fL (80-100); MEAN PLATELET VOLUME 11.1 fL (9.2-13.0); RBC DISTRIBUTION WIDTH 19.8 % (12.0-16.0); RED CELL COUNT 2.27 10/6/uL (4.7-6.1); WHITE BLOOD CELLS 13.8 10/3/uL (4.5-10.5)
[2017-02-21 01:59] LABS: HEMATOCRIT 24.9 % (40.0-51.0); MANUAL DIFF YES %; PLATELET COUNT 32 10/3/uL (150-400)
[2017-02-21 02:08] LABS: CALCIUM, SERUM 7.1 MG/DL (8.5-10.4); CHLORIDE, SERUM 106 MMOL/L (96-112); CO2 (CARBON DIOXIDE) 25 MMOL/L (24-34); POTASSIUM, SERUM 3.8 MMOL/L (3.5-5.3); SODIUM, SERUM 140 MMOL/L (135-148)
[2017-02-21 02:09] LABS: BUN (BLOOD UREA NITROGEN) 52 MG/DL (6-23); CREATININE 1.69 MG/DL (0.70-1.30); GFR AFRICAN AMERICAN 47 ML/MIN (>=60); GFR NON AFRICAN AMERICAN 40 ML/MIN (>=60); GLUCOSE, SERUM 220 MG/DL (60-99)
[2017-02-21 02:37] LABS: BAND NEUTROPHILS 5 %; IMMATURE GRANS ABSOLUTE (CALC) 0.28 10/3/uL (0.0-0.11); LYMPHOCYTES 2 %; LYMPHOCYTES ABSOLUTE (CALC) 0.28 10/3/uL (0.67-4.30); METAMYELOCYTES 2 %; MONOCYTES 4 %; MONOCYTES ABSOLUTE (CALC) 0.55 10/3/uL (0.21-1.20); SEGMENTED NEUTROPHIL (0) 87 %; TOTAL NUCLEATED CELLS 100
[2017-02-21 02:38] LABS: ANISOCYTOSIS 1+ (5-10/OIF) (0-5/OIF)
[2017-02-21 04:15] LABS: BE (BASE EXCESS) -4.9 MEQ/L (0 +/- 2.5); HCO3 (ACTUAL BICARBONATE) 19.3 MEQ/L (23-27); INSTRUMENT SERIAL # 8083; METHEMOGLOBIN 0.1 % (0-3); MODE CMV; O2 CONTENT 11.2 VOL% (18-24); OPERATOR ID 30013; PCO2 (CO2 TENSION) 32 MMHG (35-45); PO2 (O2 TENSION) 119 MMHG (79-93); SAMPLE Arterial; TIDAL VOLUME 550 ML
[2017-02-22 03:32] LABS: CALCIUM, SERUM 7.6 MG/DL (8.5-10.4); CHLORIDE, SERUM 106 MMOL/L (96-112); CO2 (CARBON DIOXIDE) 22 MMOL/L (24-34); POTASSIUM, SERUM 3.7 MMOL/L (3.5-5.3); PREALBUMIN 7.8 MG/DL (17.0-43.0); SGOT(AST) 24 U/L (5-40); SGPT(ALT) 42 U/L (5-65); SODIUM, SERUM 139 MMOL/L (135-148); TOTAL PROTEIN 4.9 G/DL (6.0-8.5)
[2017-02-22 03:55] LABS: BE (BASE EXCESS) -4.9 MEQ/L (0 +/- 2.5); CARBOXYHEMOGLOBIN 1.8 % (0-3); HCO3 (ACTUAL BICARBONATE) 20.1 MEQ/L (23-27); INSTRUMENT SERIAL # 8083; METHEMOGLOBIN 0.2 % (0-3); MODE CMV; OPERATOR ID 17370; PCO2 (CO2 TENSION) 36 MMHG (35-45); PO2 (O2 TENSION) 106 MMHG (79-93); SAMPLE Arterial; TIDAL VOLUME 550 ML; pH 7.36 (7.37-7.43)
[2017-02-22 04:08] LABS: A/G RATIO 0.5 (0.7-1.9); ALBUMIN 1.7 G/DL (3.5-5.0); ALKALINE PHOSPHATASE 95 U/L (45-117); BUN (BLOOD UREA NITROGEN) 69 MG/DL (6-23); CREATININE 2.22 MG/DL (0.70-1.30); FOLATE 18.8 NG/ML (>5.2); GFR AFRICAN AMERICAN 34 ML/MIN (>=60); GFR NON AFRICAN AMERICAN 29 ML/MIN (>=60); GLOBULIN 3.2 G/DL (2.5-4.1); GLUCOSE, SERUM 174 MG/DL (60-99); PHOSPHORUS, SERUM 5.8 MG/DL (2.5-4.5); TOTAL BILIRUBIN 1.9 MG/DL (0-1.2)
[2017-02-22 04:48] LABS: HEMATOCRIT 24.6 % (40.0-51.0); MEAN CORPUS HGB CONC 32.5 g/dL (32.0-36.0); MEAN CORPUSCULAR HEMOGLOB 35.4 pg (26.0-34.0); MEAN CORPUSCULAR VOLUME 108.8 fL (80-100); MEAN PLATELET VOLUME 10.9 fL (9.2-13.0); RBC DISTRIBUTION WIDTH 19.4 % (12.0-16.0); RED CELL COUNT 2.26 10/6/uL (4.7-6.1); WHITE BLOOD CELLS 18.2 10/3/uL (4.5-10.5)
[2017-02-22 04:59] LABS: PLATELET COUNT 44 10/3/uL (150-400)
[2017-02-22 05:00] LABS: MANUAL DIFF YES %
[2017-02-22 07:41] LABS: SEGMENTED NEUTROPHIL (0) 66 %; TOTAL NUCLEATED CELLS 100
[2017-02-22 07:42] LABS: ANISOCYTOSIS 1+ (5-10/OIF) (0-5/OIF); BAND NEUTROPHILS 19 %; ELLIPTOCYTES 1+ (3-10/OIF) (0-2/OIF); IMMATURE GRANS ABSOLUTE (CALC) 0.36 10/3/uL (0.0-0.11); LYMPHOCYTES 6 %; LYMPHOCYTES ABSOLUTE (CALC) 1.09 10/3/uL (0.67-4.30); METAMYELOCYTES 2 %; MONOCYTES 7 %; MONOCYTES ABSOLUTE (CALC) 1.27 10/3/uL (0.21-1.20); NEUTROPHILS ABSOLUTE (CALC) 15.47 10/3/uL (2.02-8.40)
[2017-02-23 04:38] LABS: HEMOGLOBIN 7.2 g/dL (13.6-17.8); MEAN CORPUS HGB CONC 32.9 g/dL (32.0-36.0); MEAN CORPUSCULAR HEMOGLOB 35.6 pg (26.0-34.0); MEAN CORPUSCULAR VOLUME 108.4 fL (80-100); MEAN PLATELET VOLUME 11.2 fL (9.2-13.0); RED CELL COUNT 2.02 10/6/uL (4.7-6.1); WHITE BLOOD CELLS 12.9 10/3/uL (4.5-10.5)
[2017-02-23 04:39] LABS: HEMATOCRIT 21.9 % (40.0-51.0); MANUAL DIFF YES %; PLATELET COUNT 48 10/3/uL (150-400)
[2017-02-23 05:00] LABS: BUN (BLOOD UREA NITROGEN) 56 MG/DL (6-23); CHLORIDE, SERUM 107 MMOL/L (96-112); CO2 (CARBON DIOXIDE) 22 MMOL/L (24-34); CREATININE 2.07 MG/DL (0.70-1.30); GFR AFRICAN AMERICAN 37 ML/MIN (>=60); GFR NON AFRICAN AMERICAN 32 ML/MIN (>=60); GLUCOSE, SERUM 150 MG/DL (60-99); PHOSPHORUS, SERUM 5.6 MG/DL (2.5-4.5); POTASSIUM, SERUM 3.7 MMOL/L (3.5-5.3); SODIUM, SERUM 140 MMOL/L (135-148)
[2017-02-23 05:18] LABS: BAND NEUTROPHILS 8 %; IMMATURE GRANS ABSOLUTE (CALC) 0.26 10/3/uL (0.0-0.11); LYMPHOCYTES 2 %; LYMPHOCYTES ABSOLUTE (CALC) 0.26 10/3/uL (0.67-4.30); METAMYELOCYTES 2 %; MONOCYTES 1 %; MONOCYTES ABSOLUTE (CALC) 0.13 10/3/uL (0.21-1.20); NEUTROPHILS ABSOLUTE (CALC) 12.26 10/3/uL (2.02-8.40); SEGMENTED NEUTROPHIL (0) 87 %; TOTAL NUCLEATED CELLS 100
[2017-02-23 05:19] LABS: ANISOCYTOSIS 1+ (5-10/OIF) (0-5/OIF)
== END 2017-02-24 02:35 | disposition expired ==
LOC: ER 20:36 → 2SO 23:49 → SDC/OF 02-10 14:45 → MIC 02-10 14:57
PROVIDERS: Internal Medicine; Internal Medicine Critical Care Medicine; Internal Medicine Nephrology; Internal Medicine Pulmonary Disease; Nurse Practitioner; Nurse Practitioner Acute Care; Surgery
PROC: 5A1955Z Respiratory Ventilation, Greater than 96 Consecutive Hours (ICD-10-PCS; 2017-02-10)
PROC: B544ZZA Ultrasonography of Left Jugular Veins, Guidance (ICD-10-PCS; 2017-02-10)
PROC: 05HN33Z Insertion of Infusion Device into Left Internal Jugular Vein, Percutaneous Approach (ICD-10-PCS; principal; 2017-02-10 16:45)
PROC: 06HM33Z Insertion of Infusion Device into Right Femoral Vein, Percutaneous Approach (ICD-10-PCS; 2017-02-11)
PROC: B54BZZA Ultrasonography of Right Lower Extremity Veins, Guidance (ICD-10-PCS; 2017-02-11)
PROC: 0BH17EZ Insertion of Endotracheal Airway into Trachea, Via Natural or Artificial Opening (ICD-10-PCS; 2017-02-11)
PROC: 5A1D00Z (ICD-10-PCS; 2017-02-11)
PROC: 5A1D60Z (ICD-10-PCS; 2017-02-22)
DX: I50.23 Acute on chronic systolic (congestive) heart failure (principal); N18.6 End stage renal disease; I21.3 ST elevation (STEMI) myocardial infarction of unspecified site; N17.0 Acute kidney failure with tubular necrosis; J96.01 Acute respiratory failure with hypoxia; R57.0 Cardiogenic shock; G93.40 Encephalopathy, unspecified; J15.1 Pneumonia due to Pseudomonas; C94.6 Myelodysplastic disease, not elsewhere classified; J15.5 Pneumonia due to Escherichia coli; E87.3 Alkalosis; S22.31XA Fracture of one rib, right side, initial encounter for closed fracture; I46.9 Cardiac arrest, cause unspecified; Z66 Do not resuscitate; Z51.5 Encounter for palliative care; D69.6 Thrombocytopenia, unspecified; G25.3 Myoclonus; J44.9 Chronic obstructive pulmonary disease, unspecified; E87.70 Fluid overload, unspecified; E03.9 Hypothyroidism, unspecified; Z91.81 History of falling; F17.210 Nicotine dependence, cigarettes, uncomplicated; Z79.899 Other long term (current) drug therapy; Z79.82 Long term (current) use of aspirin; I25.5 Ischemic cardiomyopathy
CPT/HCPCS: 31720; 36556; 36569; 36593; 36600; 70450; 71010; 74000; 74176; 76700; 76705; 76937; 77001; 80048; 80053; 80069; 80074; 80076; 80164; 80202; 81001; 82150; 82248; 82330; 82533; 82550; 82553; 82607; 82746; 82803; 82805; 82947; 82962; 83516; 83516-59; 83605; 83690; 83735; 83880; 84100; 84132; 84134; 84145; 84295; 84439; 84443; 84484; 85014; 85025; 85610; 85730; 86022; 86255; 86431; 87040; 87070; 87077; 87186; 87205; 87389; 87641; 92950; 93005; 93306; 93931; 94002; 94003; 94640; 94660; 95813; 95816; 96374; 99285; A9270-GY; C1751; C1894; C9113; G0257; J0610; J0690; J1720; J1953; J1956; J2150; J2250; J2405; J2543; J2997; J3010; J3370; P9047